=== PATIENT | female | born 1935 | race Caucasian/White ===

== ENCOUNTER 2016-09-08 23:02 | Emergency (ER) | payer MEDICARE, OTHER ==
[2016-09-08 23:52] VITALS: BP 119/54
--- NOTE | 2016-09-09 00:24 | EDM.PDOC ---
ED HPI GENERAL MEDICAL PROBLEM - General Chief Complaint: Laceration Stated Complaint: CUT RIGHT LEG Time Seen by Provider: 09/09/16 00:14 Source of Information: Reports: Patient History Limitations: Reports: No Limitations - History of Present Illness INITIAL COMMENTS - FREE TEXT/NARRATIVE: This patient is taking an anticoagulant. Tonight she bumped her right lower leg against some furniture. She got a skin tear which continues to bleed and she is worried it might need stitches. Right Leg Pain Score (Numeric/FACES): 3 - Related Data Allergies Allergy/AdvReac Type Severity Reaction Status Date / Time amoxicillin Allergy Cannot Verified 09/08/16 23:40 Remember bacitracin Allergy Cannot Verified 09/08/16 23:40 Remember enoxaparin Allergy Cannot Verified 09/08/16 23:40 Remember latex Allergy Cannot Verified 09/08/16 23:40 Remember ramipril Allergy Cannot Verified 09/08/16 23:40 Remember Home Meds: Home Meds Albuterol [Ventolin HFA] 2 puff IH Q4H PRN 09/09/16 [History] Allopurinol [Zyloprim] 100 mg PO DAILY 09/09/16 [History] Aspirin [Ecotrin] 81 mg PO DAILY 09/09/16 [History] Cyanocobalamin (Vitamin B12) [Vitamin B12] 100 mcg PO BID 09/09/16 [History] Diazepam [Diazepam] 10 mg PO BEDTIME PRN 09/09/16 [History] Diltiazem HCl [Diltiazem 24Hr Cd] 180 mg PO DAILY 09/09/16 [History] Estrogens, Conjugated [Premarin Vaginal Crm] 0.5 gm VAG DAILY 09/09/16 [History] Furosemide [Lasix] 40 mg PO BID 09/09/16 [History] L.acidoph,Paracasei, B.lactis [Probiotic] 1 cap PO DAILY 09/09/16 [History] Meclizine [Antivert] 25 mg PO TID PRN 09/09/16 [History] Metoprolol Succinate [Toprol Xl] 12.5 mg PO BID 09/09/16 [History] Pravastatin [Pravachol] 10 mg PO BEDTIME 09/09/16 [History] Spironolactone [Aldactone] 25 mg PO BID 09/09/16 [History] Warfarin [Coumadin] 1.5 tab PO DAILY 09/09/16 [History] Warfarin [Coumadin] 5 mg PO DAILY 09/09/16 [History] guaiFENesin/Dextromethorphan [Robitussin Cough-Chest Dm Liq] 1 dose PO ASDIRECTED 09/09/16 [History] Past Medical History HEENT History: Reports: Cataract, Impaired Vision Cardiovascular History: Reports: Arrhythmia, High Cholesterol, Hypertension, Pacemaker Respiratory History: Reports: Sleep Apnea 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: Musculoskeletal History: Reports: Arthritis Hematologic History: Reports: Anemia, Anticoagulation Therapy Oncologic (Cancer) History: Reports: Breast Dermatologic History: Reports: Other (See Below) Other Dermatologic History: skin cancer - Past Surgical History HEENT Surgical History: Reports: Cataract Surgery Cardiovascular Surgical History: Reports: Valve Replacement Female Surgical History: Reports: Breast Reconstruction, Hysterectomy Musculoskeletal Surgical History: Reports: Knee Replacement Oncologic Surgical History: Reports: Mastectomy Other Oncologic Surgeries/Procedures: left mastectomy Social & Family History - Tobacco Use Smoking Status *Q: Never Smoker - Caffeine Use Caffeine Use: Reports: None - Alcohol Use Days Per Week of Alcohol Use: 7 Number of Drinks Per Day: 2 Total Drinks Per Week: 14 - Recreational Drug Use Recreational Drug Use: No ED ROS GENERAL - Review of Systems Review Of Systems: ROS reveals no pertinent complaints other than HPI. ED EXAM, SKIN/RASH Exam: See Below Exam Limited By: No Limitations General Appearance: Alert, WD/WN Extremities: Other (there is a small skin tear approximately 2.5 cm long to the lateral side of the lower third of the right lower leg. He continues to ooze blood.) Course - Vital Signs Last Recorded V/S: Last Vital Signs Temp 36.8 C 09/08/16 23:55 Pulse 92 09/08/16 23:55 Resp 18 09/08/16 23:55 BP 119/54 L 09/08/16 23:55 Pulse Ox 94 L 09/08/16 23:55 - Re-Assessments/Exams Free Text/Narrative Re-Assessment/Exam: 09/09/16 00:23 The wound was cleaned and a nonstick pressure dressing was applied. Departure - Departure Time of Disposition: 00:23 Disposition: Home, Self-Care 01 Condition: Fair Clinical Impression: Skin tear - Discharge Information Forms: ED Department Discharge Additional Instructions: Leave the dressing on until Saturday. Then begin gently washing with soap and water daily and cover with a dressing. If it bleeds more than you should apply direct pressure.
== END 2016-09-09 00:36 | disposition home or self-care (01) ==
LOC: JP.ED 23:02
DX: S81.811A Laceration without foreign body, right lower leg, initial encounter (principal); I10 Essential (primary) hypertension; E78.00 Pure hypercholesterolemia, unspecified; H54.7 Unspecified visual loss; Z88.8 Allergy status to other drugs, medicaments and biological substances; Z91.040 Latex allergy status; Z79.82 Long term (current) use of aspirin; Z88.1 Allergy status to other antibiotic agents; Z79.899 Other long term (current) drug therapy; Z79.01 Long term (current) use of anticoagulants; Z95.0 Presence of cardiac pacemaker; Z98.49 Cataract extraction status, unspecified eye; Z90.10 Acquired absence of unspecified breast and nipple; Z96.659 Presence of unspecified artificial knee joint; Z90.710 Acquired absence of both cervix and uterus; W22.03XA Walked into furniture, initial encounter
CPT/HCPCS: 99282; 99283

== ENCOUNTER 2016-11-14 16:35 | Inpatient (IN) | payer MEDICARE, OTHER ==
[2016-11-14] MEDS ORDERED: Albuterol 0.083% 2.5 MG/3 ML Neb Soln NEB ONE (17:22)
--- NOTE | 2016-11-14 17:26 | EDM.PDOC ---
ED HPI GENERAL MEDICAL PROBLEM - General Chief Complaint: Respiratory Problem Stated Complaint: SICK FOR A FEW DAYS Time Seen by Provider: 11/14/16 17:23 Source of Information: Reports: Patient, Family, Old Records History Limitations: Reports: No Limitations - History of Present Illness INITIAL COMMENTS - FREE TEXT/NARRATIVE: pt arrived with marked sob. She started coughing on Sat and since that time has gotten progressively worse. She has been very sob but last nite she usd her cpap machine which was helpful to her. Onset: Gradual Duration: Day(s):, Getting Worse Location: Reports: Chest, Other (pt is feeling very congested. ) Associated Symptoms: Reports: Shortness of Breath headache and bodyaches Pain Score (Numeric/FACES): 5 Right Hip Pain Score (Numeric/FACES): 0 - Related Data Allergies Allergy/AdvReac Type Severity Reaction Status Date / Time amoxicillin Allergy Cannot Verified 11/14/16 17:13 Remember bacitracin Allergy Cannot Verified 11/14/16 17:13 Remember enoxaparin Allergy Cannot Verified 11/14/16 17:13 Remember latex Allergy Cannot Verified 11/14/16 17:13 Remember ramipril Allergy Cannot Verified 11/14/16 17:13 Remember Home Meds: Home Meds Albuterol [Ventolin HFA] 2 puff IH Q4H PRN 09/09/16 [History] Allopurinol [Zyloprim] 100 mg PO DAILY 09/09/16 [History] Aspirin [Ecotrin] 81 mg PO DAILY 09/09/16 [History] Diltiazem HCl [Diltiazem 24Hr Cd] 180 mg PO DAILY 09/09/16 [History] Estrogens, Conjugated [Premarin Vaginal Crm] 0.5 gm VAG DAILY 09/09/16 [History] Furosemide [Lasix] 40 mg PO BID 09/09/16 [History] L.acidoph,Paracasei, B.lactis [Probiotic] 1 cap PO DAILY 09/09/16 [History] Meclizine [Antivert] 25 mg PO TID PRN 09/09/16 [History] Metoprolol Succinate [Toprol Xl] 12.5 mg PO BID 09/09/16 [History] Pravastatin [Pravachol] 10 mg PO BEDTIME 09/09/16 [History] Spironolactone [Aldactone] 25 mg PO BID 09/09/16 [History] Warfarin [Coumadin] 1.5 tab PO DAILY 09/09/16 [History] Warfarin [Coumadin] 2.5 mg PO DAILY 09/09/16 [History] Acetaminophen [Tylenol] 650 mg PO BEDTIME 11/14/16 [History] Calcium Carbonate [Calcium] 500 mg PO BEDTIME 11/14/16 [History] Cholecalciferol (Vitamin D3) [Vitamin D3] 1,000 units PO DAILY 11/14/16 [History ] Diazepam [Valium] 10 mg PO BEDTIME 11/14/16 [History] Ferrous Sulfate 325 mg PO WITHBREAKFAST 11/14/16 [History] Glucosimene-Chondroitin 1 cap PO BID 11/14/16 [History] Past Medical History HEENT History: Reports: Cataract, Impaired Vision Cardiovascular History: Reports: Arrhythmia, High Cholesterol, Hypertension, Pacemaker Respiratory History: Reports: Sleep Apnea Genitourinary History: Reports: Other (See Below) Other Genitourinary History: 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 [employer] History: Reports: Musculoskeletal History: Reports: Arthritis, Osteoarthritis Hematologic History: Reports: Anemia, Anticoagulation Therapy Oncologic (Cancer) History: Reports: Breast, Uterine Other Oncologic History: skin cancer Dermatologic History: Reports: Other (See Below) Other Dermatologic History: skin cancer - Past Surgical History HEENT Surgical History: Reports: Cataract Surgery Cardiovascular Surgical History: Reports: Valve Replacement Female Surgical History: Reports: Breast Reconstruction, Hysterectomy Musculoskeletal Surgical History: Reports: Knee Replacement Other Musculoskeletal Surgeries/Procedures:: 2010 Oncologic Surgical History: Reports: Mastectomy Other Oncologic Surgeries/Procedures: left mastectomy Social & Family History - Tobacco Use Smoking Status *Q: Never Smoker - Caffeine Use Caffeine Use: Reports: None - Alcohol Use Days Per Week of Alcohol Use: 7 Number of Drinks Per Day: 2 Total Drinks Per Week: 14 - Recreational Drug Use Recreational Drug Use: No ED ROS GENERAL - Review of Systems Review Of Systems: See Below Constitutional: Reports: Fever, Chills, Malaise, Decreased Appetite HEENT: Reports: No Symptoms Respiratory: Reports: Wheezing, Cough Cardiovascular: Reports: No Symptoms Endocrine: Reports: No Symptoms GI/Abdominal: Reports: No Symptoms : Reports: No Symptoms Musculoskeletal: Reports: No Symptoms Skin: Reports: No Symptoms ED EXAM, GENERAL - Physical Exam Exam: See Below Free Text/Narrative:: pt is clearly very sob. She has been struggling for the past 2-3 days. She has had increased swelling in her ankles--mild. Exam Limited By: Respiratory Distress General Appearance: Alert, Anxious, Moderate Distress, Other (pupils are equal and reactive. ) Ears: Normal TMs Nose: Normal Inspection Throat/Mouth: Normal Inspection Head: Atraumatic Neck: Normal Inspection Respiratory/Chest: Decreased Breath Sounds, Crackles, Wheezing Cardiovascular: Irregularly Irregular GI/Abdominal: Soft, Other ( abdoman seemes slightly tight but not tender. ) (Female) Exam: Deferred Rectal (Female) Exam: Deferred Back Exam: Normal Inspection Extremities: Other (pt has severe stasis dermatitis, pt has plus1 pitting edema. She has an open lesion on her rt leg. ) Neurological: Alert, Oriented, Normal Cognition, Other (Pt is labored with her breathing) Psychiatric: Normal Affect Course - Vital Signs Last Recorded V/S: Last Vital Signs Temp 36.3 C 11/19/16 03:19 Pulse 80 11/19/16 03:19 Resp 16 11/19/16 03:19 BP 122/64 11/19/16 03:19 Pulse Ox 91 L 11/19/16 03:19 - Orders/Labs/Meds Orders: Medication Orders Acetaminophen (Tylenol) 650 mg PO Q4H PRN PRN Reason: Pain (Mild 1-3)/fever Last Admin: 11/18/16 22:25 Dose: 650 mg Admin: 11/17/16 20:48 Dose: 650 mg Admin: 11/16/16 20:39 Dose: 650 mg Admin: 11/16/16 16:05 Dose: 650 mg Admin: 11/16/16 09:24 Dose: 650 mg Admin: 11/15/16 18:24 Dose: 650 mg Admin: 11/14/16 21:31 Dose: 650 mg Albuterol (Proventil Neb Soln) 2.5 mg NEB Q4H PRN PRN Reason: Shortness Of Breath/wheezing Albuterol/Ipratropium (Duoneb 3.0-0.5 Mg/3 Ml) 3 ml NEB QIDRT DIANNA Last Admin: 11/18/16 20:05 Dose: 3 ml Admin: 11/18/16 14:47 Dose: 3 ml Admin: 11/18/16 14:46 Dose: Not Given Admin: 11/18/16 08:27 Dose: 3 ml Admin: 11/17/16 20:47 Dose: 3 ml Admin: 11/17/16 14:54 Dose: 3 ml Admin: 11/17/16 11:04 Dose: Not Given Admin: 11/17/16 07:22 Dose: 3 ml Admin: 11/16/16 20:39 Dose: 3 ml Admin: 11/16/16 14:50 Dose: 3 ml Admin: 11/16/16 11:00 Dose: 3 ml Admin: 11/16/16 07:28 Dose: 3 ml Admin: 11/15/16 20:49 Dose: 3 ml Admin: 11/15/16 14:38 Dose: 3 ml Admin: 11/15/16 10:50 Dose: 3 ml Allopurinol (Zyloprim) 100 mg PO DAILY [facility] Last Admin: 11/18/16 08:27 Dose: 100 mg Admin: 11/17/16 09:31 Dose: 100 mg Admin: 11/16/16 09:04 Dose: 100 mg Admin: 11/15/16 10:31 Dose: 100 mg Benzonatate (Tessalon Perles) 100 mg PO TID PRN PRN Reason: Cough Last Admin: 11/18/16 03:24 Dose: 100 mg Admin: 11/17/16 20:48 Dose: 100 mg Admin: 11/17/16 06:30 Dose: 100 mg Admin: 11/16/16 16:05 Dose: 100 mg Admin: 11/16/16 09:12 Dose: 100 mg Diazepam (Valium.) 10 mg PO BEDTIME DIANNA Last Admin: 11/18/16 22:25 Dose: 10 mg Admin: 11/17/16 20:48 Dose: 10 mg Admin: 11/16/16 20:39 Dose: 10 mg Admin: 11/15/16 20:57 Dose: 10 mg Admin: 11/14/16 21:34 Dose: 10 mg Diltiazem HCl (Cardizem Cd) 180 mg PO DAILY DIANNA Last Admin: 11/18/16 08:26 Dose: 180 mg Admin: 11/17/16 09:30 Dose: 180 mg Admin: 11/16/16 09:04 Dose: 180 mg Admin: 11/15/16 10:30 Dose: 180 mg Docusate Sodium (Colace) 100 mg PO BID PRN PRN Reason: Constipation Furosemide (Lasix) 40 mg PO BIDDIURETIC [facility] Last Admin: 11/18/16 13:31 Dose: 40 mg Admin: 11/18/16 08:27 Dose: 40 mg Admin: 11/17/16 13:47 Dose: 40 mg Admin: 11/17/16 07:26 Dose: 40 mg Admin: 11/16/16 14:58 Dose: 40 mg Admin: 11/16/16 09:02 Dose: 40 mg Admin: 11/15/16 13:52 Dose: 40 mg Admin: 11/15/16 10:29 Dose: 40 mg Guaifenesin/Codeine Phosphate (Robitussin Ac) 10 ml PO Q4H PRN PRN Reason: Cough Last Admin: 11/15/16 05:14 Dose: 10 ml Admin: 11/14/16 21:31 Dose: 10 ml Guaifenesin/Dextromethorphan (Robitussin Dm) 10 ml PO Q4H PRN PRN Reason: Cough Last Admin: 11/18/16 11:24 Dose: 10 ml Levofloxacin/Dextrose 750 mg/ (Premix) 150 mls @ 100 mls/hr IV Q48H [facility] Last Admin: 11/18/16 20:06 Dose: 100 mls/hr Infusion: 11/16/16 22:09 Dose: 100 mls/hr Admin: 11/16/16 20:39 Dose: 100 mls/hr Infusion: 11/14/16 23:04 Dose: 100 mls/hr Admin: 11/14/16 21:34 Dose: 100 mls/hr Lactobacillus Rhamnosus (Culturelle) 1 cap PO BID [facility] Last Admin: 11/18/16 20:05 Dose: 1 cap Admin: 11/18/16 08:27 Dose: 1 cap Admin: 11/17/16 20:50 Dose: 1 cap Admin: 11/17/16 13:48 Dose: 1 cap Lorazepam (Ativan) 1 mg IV Q6H PRN PRN Reason: Nausea/Vomiting Metoprolol Succinate (Toprol Xl) 12.5 mg PO BID [facility] Last Admin: 11/18/16 20:06 Dose: 12.5 mg Admin: 11/18/16 08:27 Dose: 12.5 mg Admin: 11/17/16 21:00 Dose: 12.5 mg Admin: 11/17/16 09:29 Dose: 12.5 mg Admin: 11/16/16 20:41 Dose: 12.5 mg Admin: 11/16/16 09:04 Dose: 12.5 mg Admin: 11/15/16 20:53 Dose: 12.5 mg Admin: 11/15/16 10:30 Dose: 12.5 mg Admin: 11/14/16 21:30 Dose: 12.5 mg Morphine Sulfate (Morphine) 2 mg IVPUSH Q2H PRN PRN Reason: Pain (severe 7-10) Nyquil Gel Caps (Own Med) 2 each PO Q4H PRN PRN Reason: COUGH / SLEEP Last Admin: 11/19/16 01:29 Dose: 2 each Ondansetron HCl (Zofran Odt) 4 mg PO Q6H PRN PRN Reason: Nausea able to take PO Ondansetron HCl (Zofran) 4 mg IV Q4H PRN PRN Reason: Nausea/Vomiting Pantoprazole Sodium (Protonix) 40 mg PO ACBREAKFAST [facility] Last Admin: 11/18/16 08:27 Dose: 40 mg Admin: 11/17/16 07:25 Dose: 40 mg Admin: 11/16/16 07:27 Dose: 40 mg Admin: 11/15/16 10:29 Dose: 40 mg Dayquil (Apap/Dextromethorphan/Phenyl)Ptom 2 each PO QID PRN PRN Reason: COUGH Last Admin: 11/18/16 15:45 Dose: 2 each Pravastatin Sodium (Pravachol) 10 mg PO BEDTIME DIANNA Last Admin: 11/18/16 20:06 Dose: 10 mg Admin: 11/17/16 20:49 Dose: 10 mg Admin: 11/16/16 20:40 Dose: 10 mg Admin: 11/15/16 20:54 Dose: 10 mg Admin: 11/14/16 21:34 Dose: 10 mg Senna/Docusate Sodium (Senna Plus) 1 tab PO BID PRN PRN Reason: Constipation Last Admin: 11/18/16 20:07 Dose: 1 tab Spironolactone (Aldactone) 25 mg PO BID [facility] Last Admin: 11/18/16 20:05 Dose: 25 mg Admin: 11/18/16 08:27 Dose: 25 mg Admin: 11/17/16 20:50 Dose: 25 mg Admin: 11/17/16 09:30 Dose: 25 mg Admin: 11/16/16 20:40 Dose: 25 mg Admin: 11/16/16 09:03 Dose: 25 mg Admin: 11/15/16 20:53 Dose: 25 mg Admin: 11/15/16 10:30 Dose: 25 mg Admin: 11/14/16 21:31 Dose: 25 mg Temazepam (Restoril) 15 mg PO BEDTIME PRN PRN Reason: Sleep Last Admin: 11/15/16 01:08 Dose: 15 mg Labs: Laboratory Tests 11/14/16 11/14/16 11/14/16 Range/Units 16:59 17:02 17:02 WBC 15.2 H (4.5-11.0) K/uL RBC 3.62 (3.30-5.50) M/uL Hgb 11.8 L (12.0-15.0) g/dL Hct 36.3 (36.0-48.0) % MCV 100 H (80-98) fL MCH 33 H (27-31) pg MCHC 33 (32-36) % Plt Count 189 (150-400) K/uL Neut % (Auto) 82 H (36-66) % Lymph % (Auto) 5 L (24-44) % [place] % (Auto) 13 H (2-6) % Eos % (Auto) 0 L (2-4) % Baso % (Auto) 0 (0-1) % PT (9.5-12.0) sec INR (0.80-1.20) Puncture Site ABG pH (7.350-7.450) ABG pCO2 (35.0-42.0) mmHg ABG pO2 (75.0-100.0) mmHg ABG HCO3 (22.0-26.0) mmol/L ABG Total CO2 (21.0-25.0) mmol/L ABG O2 Saturation (95.0-98.0) % ABG O2 Content (15.0-23.0) %vol ABG Base Excess mm/L ABG Hemoglobin (12.0-16.0) g/dL ABG Oxyhemoglobin % ABG Carboxyhemoglobin (0.0-1.6) % ABG Methemoglobin % Igor Test O2 Delivery Device Sodium (140-148) mmol/L Potassium (3.6-5.2) mmol/L Chloride (100-108) mmol/L Carbon Dioxide (21-32) mmol/L Anion Gap (5.0-14.0) mmol/L BUN (7-18) mg/dL Creatinine (0.6-1.0) mg/dL Est Cr Clr Drug Dosing mL/min Estimated GFR (MDRD) (>60) Glucose (74-106) mg/dL Lactic Acid (0.4-2.0) mmol/L Calcium (8.5-10.1) mg/dL Total Bilirubin (0.2-1.0) mg/dL AST (15-37) U/L ALT (12-78) U/L Alkaline Phosphatase (46-116) U/L Troponin I < 0.017 (0.000-0.056) ng/mL C-Reactive Protein (0.0-0.3) mg/dL NT-Pro-B Natriuret Pep (5-450) pg/mL Total Protein (6.4-8.2) g/dL Albumin (3.4-5.0) g/dL Globulin (2.3-3.5) g/dL Albumin/Globulin Ratio (1.2-2.2) Vitamin B12 (193-986) pg/ml Folate (8.6-58.9) ng/ml Urine Color Yellow Urine Appearance Clear Urine pH 5.0 (4.5-8.0) Ur Specific [place] 1.015 (1.008-1.030) Urine Protein Negative (NEGATIVE) mg/dL Urine Glucose (UA) Normal (NEGATIVE) mg/dL Urine Ketones Negative (NEGATIVE) mg/dL Urine Occult Blood Negative (NEGATIVE) Urine Nitrite Negative (NEGATIVE) Urine Bilirubin Negative (NEGATIVE) Urine Urobilinogen Normal (NORMAL) mg/dL Ur Leukocyte Esterase Negative (NEGATIVE) Urine RBC 0-5 (0-5) Urine WBC Not seen (0-5) Ur Epithelial Cells Many Amorphous Sediment Not seen Urine Bacteria Not seen Urine Mucus Not seen 11/14/16 11/14/16 11/14/16 Range/Units 17:02 17:02 17:02 WBC (4.5-11.0) K/uL RBC (3.30-5.50) M/uL Hgb (12.0-15.0) g/dL Hct (36.0-48.0) % MCV (80-98) fL MCH (27-31) pg MCHC (32-36) % Plt Count (150-400) K/uL Neut % (Auto) (36-66) % Lymph % (Auto) (24-44) % [place] % (Auto) (2-6) % Eos % (Auto) (2-4) % Baso % (Auto) (0-1) % PT (9.5-12.0) sec INR (0.80-1.20) Puncture Site ABG pH (7.350-7.450) ABG pCO2 (35.0-42.0) mmHg ABG pO2 (75.0-100.0) mmHg ABG HCO3 (22.0-26.0) mmol/L ABG Total CO2 (21.0-25.0) mmol/L ABG O2 Saturation (95.0-98.0) % ABG O2 Content (15.0-23.0) %vol ABG Base Excess mm/L ABG Hemoglobin (12.0-16.0) g/dL ABG Oxyhemoglobin % ABG Carboxyhemoglobin (0.0-1.6) % ABG Methemoglobin % Igor Test O2 Delivery Device Sodium 133 L (140-148) mmol/L Potassium 4.3 (3.6-5.2) mmol/L Chloride 99 L (100-108) mmol/L Carbon Dioxide 25 (21-32) mmol/L Anion Gap 13.3 (5.0-14.0) mmol/L BUN 42 H (7-18) mg/dL Creatinine 1.5 H (0.6-1.0) mg/dL Est Cr Clr Drug Dosing 28.12 mL/min Estimated GFR (MDRD) 33 L (>60) Glucose 115 H (74-106) mg/dL Lactic Acid (0.4-2.0) mmol/L Calcium 9.1 (8.5-10.1) mg/dL Total Bilirubin 0.9 (0.2-1.0) mg/dL AST 20 (15-37) U/L ALT 21 (12-78) U/L Alkaline Phosphatase 79 (46-116) U/L Troponin I (0.000-0.056) ng/mL C-Reactive Protein 28.45 H (0.0-0.3) mg/dL NT-Pro-B Natriuret Pep 2641 H (5-450) pg/mL Total Protein 8.1 (6.4-8.2) g/dL Albumin 3.3 L (3.4-5.0) g/dL Globulin 4.8 H (2.3-3.5) g/dL Albumin/Globulin Ratio 0.7 L (1.2-2.2) Vitamin B12 (193-986) pg/ml Folate 26.7 (8.6-58.9) ng/ml Urine Color Urine Appearance Urine pH (4.5-8.0) Ur Specific [place] (1.008-1.030) Urine Protein (NEGATIVE) mg/dL Urine Glucose (UA) (NEGATIVE) mg/dL Urine Ketones (NEGATIVE) mg/dL Urine Occult Blood (NEGATIVE) Urine Nitrite (NEGATIVE) Urine Bilirubin (NEGATIVE) Urine Urobilinogen (NORMAL) mg/dL Ur Leukocyte Esterase (NEGATIVE) Urine RBC (0-5) Urine WBC (0-5) Ur Epithelial Cells Amorphous Sediment Urine Bacteria Urine Mucus 11/14/16 11/14/16 11/14/16 Range/Units 17:02 17:02 17:05 WBC (4.5-11.0) K/uL RBC (3.30-5.50) M/uL Hgb (12.0-15.0) g/dL Hct (36.0-48.0) % MCV (80-98) fL MCH (27-31) pg MCHC (32-36) % Plt Count (150-400) K/uL Neut % (Auto) (36-66) % Lymph % (Auto) (24-44) % [place] % (Auto) (2-6) % Eos % (Auto) (2-4) % Baso % (Auto) (0-1) % PT (9.5-12.0) sec INR (0.80-1.20) Puncture Site Rt radial ABG pH 7.422 (7.350-7.450) ABG pCO2 35.7 (35.0-42.0) mmHg ABG pO2 52.7 L (75.0-100.0) mmHg ABG HCO3 22.8 (22.0-26.0) mmol/L ABG Total CO2 20.8 L (21.0-25.0) mmol/L ABG O2 Saturation 87.3 L (95.0-98.0) % ABG O2 Content 13.6 L (15.0-23.0) %vol ABG Base Excess -0.7 mm/L ABG Hemoglobin 11.4 L (12.0-16.0) g/dL ABG Oxyhemoglobin 85.0 % ABG Carboxyhemoglobin 1.9 H (0.0-1.6) % ABG Methemoglobin 0.7 % Igor Test Passed O2 Delivery Device Room air Sodium (140-148) mmol/L Potassium (3.6-5.2) mmol/L Chloride (100-108) mmol/L Carbon Dioxide (21-32) mmol/L Anion Gap (5.0-14.0) mmol/L BUN (7-18) mg/dL Creatinine (0.6-1.0) mg/dL Est Cr Clr Drug Dosing mL/min Estimated GFR (MDRD) (>60) Glucose (74-106) mg/dL Lactic Acid 1.6 (0.4-2.0) mmol/L Calcium (8.5-10.1) mg/dL Total Bilirubin (0.2-1.0) mg/dL AST (15-37) U/L ALT (12-78) U/L Alkaline Phosphatase (46-116) U/L Troponin I (0.000-0.056) ng/mL C-Reactive Protein (0.0-0.3) mg/dL NT-Pro-B Natriuret Pep (5-450) pg/mL Total Protein (6.4-8.2) g/dL Albumin (3.4-5.0) g/dL Globulin (2.3-3.5) g/dL Albumin/Globulin Ratio (1.2-2.2) Vitamin B12 2092 H (193-986) pg/ml Folate (8.6-58.9) ng/ml Urine Color Urine Appearance Urine pH (4.5-8.0) Ur Specific [place] (1.008-1.030) Urine Protein (NEGATIVE) mg/dL Urine Glucose (UA) (NEGATIVE) mg/dL Urine Ketones (NEGATIVE) mg/dL Urine Occult Blood (NEGATIVE) Urine Nitrite (NEGATIVE) Urine Bilirubin (NEGATIVE) Urine Urobilinogen (NORMAL) mg/dL Ur Leukocyte Esterase (NEGATIVE) Urine RBC (0-5) Urine WBC (0-5) Ur Epithelial Cells Amorphous Sediment Urine Bacteria Urine Mucus 11/14/16 Range/Units 17:06 WBC (4.5-11.0) K/uL RBC (3.30-5.50) M/uL Hgb (12.0-15.0) g/dL Hct (36.0-48.0) % MCV (80-98) fL MCH (27-31) pg MCHC (32-36) % Plt Count (150-400) K/uL Neut % (Auto) (36-66) % Lymph % (Auto) (24-44) % [place] % (Auto) (2-6) % Eos % (Auto) (2-4) % Baso % (Auto) (0-1) % PT 38.9 H (9.5-12.0) sec INR 3.45 H (0.80-1.20) Puncture Site ABG pH (7.350-7.450) ABG pCO2 (35.0-42.0) mmHg ABG pO2 (75.0-100.0) mmHg ABG HCO3 (22.0-26.0) mmol/L ABG Total CO2 (21.0-25.0) mmol/L ABG O2 Saturation (95.0-98.0) % ABG O2 Content (15.0-23.0) %vol ABG Base Excess mm/L ABG Hemoglobin (12.0-16.0) g/dL ABG Oxyhemoglobin % ABG Carboxyhemoglobin (0.0-1.6) % ABG Methemoglobin % Igor Test O2 Delivery Device Sodium (140-148) mmol/L Potassium (3.6-5.2) mmol/L Chloride (100-108) mmol/L Carbon Dioxide (21-32) mmol/L Anion Gap (5.0-14.0) mmol/L BUN (7-18) mg/dL Creatinine (0.6-1.0) mg/dL Est Cr Clr Drug Dosing mL/min Estimated GFR (MDRD) (>60) Glucose (74-106) mg/dL Lactic Acid (0.4-2.0) mmol/L Calcium (8.5-10.1) mg/dL Total Bilirubin (0.2-1.0) mg/dL AST (15-37) U/L ALT (12-78) U/L Alkaline Phosphatase (46-116) U/L Troponin I (0.000-0.056) ng/mL C-Reactive Protein (0.0-0.3) mg/dL NT-Pro-B Natriuret Pep (5-450) pg/mL Total Protein (6.4-8.2) g/dL Albumin (3.4-5.0) g/dL Globulin (2.3-3.5) g/dL Albumin/Globulin Ratio (1.2-2.2) Vitamin B12 (193-986) pg/ml Folate (8.6-58.9) ng/ml Urine Color Urine Appearance Urine pH (4.5-8.0) Ur Specific [place] (1.008-1.030) Urine Protein (NEGATIVE) mg/dL Urine Glucose (UA) (NEGATIVE) mg/dL Urine Ketones (NEGATIVE) mg/dL Urine Occult Blood (NEGATIVE) Urine Nitrite (NEGATIVE) Urine Bilirubin (NEGATIVE) Urine Urobilinogen (NORMAL) mg/dL Ur Leukocyte Esterase (NEGATIVE) Urine RBC (0-5) Urine WBC (0-5) Ur Epithelial Cells Amorphous Sediment Urine Bacteria Urine Mucus Meds: Medications Generic Name Dose Route Start Last Admin Trade Name Freq PRN Reason Stop Dose Admin Acetaminophen 650 mg 11/14/16 20:51 11/18/16 22:25 Tylenol PO 650 mg Q4H PRN Administration Pain (Mild 1-3)/fever Albuterol 2.5 mg 11/14/16 20:51 Proventil Neb Soln NEB Q4H PRN Shortness Of Breath/wheezing Albuterol/Ipratropium 3 ml 11/15/16 11:00 11/18/16 20:05 Duoneb 3.0-0.5 Mg/3 Ml NEB 3 ml QIDRT DIANNA Administration Allopurinol 100 mg 11/15/16 09:00 11/18/16 08:27 Zyloprim PO 100 mg DAILY DIANNA Administration Benzonatate 100 mg 11/14/16 20:51 11/18/16 03:24 Tessalon Perles PO 100 mg TID PRN Administration Cough Diazepam 10 mg 11/14/16 21:00 11/18/16 22:25 Valium. PO 10 mg BEDTIME DIANNA Administration Diltiazem HCl 180 mg 11/15/16 09:00 11/18/16 08:26 Cardizem Cd PO 180 mg DAILY DIANNA Administration Docusate Sodium 100 mg 11/14/16 20:51 Colace PO BID PRN Constipation Furosemide 40 mg 11/15/16 08:00 11/18/16 13:31 Lasix PO 40 mg BIDDIURETIC DIANNA Administration Guaifenesin/Codeine Phosphate 10 ml 11/14/16 20:51 11/15/16 05:14 Robitussin Ac PO 10 ml Q4H PRN Administration Cough Guaifenesin/Dextromethorphan 10 ml 11/14/16 20:51 11/18/16 11:24 Robitussin Dm PO 10 ml Q4H PRN Administration Cough Levofloxacin/Dextrose 750 mg/ 150 mls @ 100 mls/hr 11/14/16 21:00 11/18/16 20 :06 Premix IV 100 mls/hr Q48H DIANNA Administration Lactobacillus Rhamnosus 1 cap 11/17/16 13:00 11/18/16 20:05 Culturelle PO 1 cap BID DIANNA Administration Lorazepam 1 mg 11/14/16 20:51 Ativan IV Q6H PRN Nausea/Vomiting Metoprolol Succinate 12.5 mg 11/14/16 21:00 11/18/16 20:06 Toprol Xl PO 12.5 mg BID DIANNA Administration Morphine Sulfate 2 mg 11/14/16 20:51 Morphine IVPUSH Q2H PRN Pain (severe 7-10) Nyquil Gel Caps 2 each 11/18/16 16:35 11/19/16 01:29 Own Med PO 2 each Q4H PRN Administration COUGH / SLEEP Ondansetron HCl 4 mg 11/14/16 20:51 Zofran Odt PO Q6H PRN Nausea able to take PO Ondansetron HCl 4 mg 11/14/16 20:51 Zofran IV Q4H PRN Nausea/Vomiting Pantoprazole Sodium 40 mg 11/15/16 07:30 11/18/16 08:27 Protonix PO 40 mg ACBREAKFAST DIANNA Administration Dayquil (Apap/ 2 each 11/18/16 16:35 11/18/16 15:45 Dextromethorphan/ PO 2 each Phenyl)Ptom QID PRN Administration COUGH Pravastatin Sodium 10 mg 11/14/16 21:00 11/18/16 20:06 Pravachol PO 10 mg BEDTIME DIANNA Administration Senna/Docusate Sodium 1 tab 11/17/16 14:00 11/18/16 20:07 Senna Plus PO 1 tab BID PRN Administration Constipation Spironolactone 25 mg 11/14/16 21:00 11/18/16 20:05 Aldactone PO 25 mg BID DIANNA Administration Temazepam 15 mg 11/15/16 00:45 11/15/16 01:08 Restoril PO 15 mg BEDTIME PRN Administration Sleep Discontinued Medications Generic Name Dose Route Start Last Admin Trade Name Freq PRN Reason Stop Dose Admin Albuterol 2.5 mg 11/14/16 17:22 11/14/16 17:30 Proventil Neb Soln NEB 11/14/16 17:23 2.5 mg ONETIME ONE Administration Albuterol/Ipratropium 3 ml 11/14/16 22:00 11/15/16 05:14 Duoneb 3.0-0.5 Mg/3 Ml NEB 3 ml QID DIANNA Administration Furosemide 60 mg 11/14/16 17:49 11/14/16 18:20 Lasix IVPUSH 11/14/16 17:50 60 mg ONETIME ONE Administration Furosemide Confirm 11/14/16 18:22 11/14/16 20:29 Lasix Administered 11/14/16 18:23 Not Given Dose 40 mg .ROUTE .STK-MED ONE Furosemide 40 mg 11/14/16 21:00 11/15/16 05:27 Lasix PO Not Given BID DIANNA Furosemide 40 mg 11/15/16 09:00 Lasix PO BID DIANNA Sodium Chloride 1,000 mls @ 100 mls/hr 11/14/16 18:00 11/16/16 02:10 Normal Saline IV 100 mls/hr ASDIRECTED DIANNA Administration Ceftriaxone Sodium 1 gm/ 50 mls @ 100 mls/hr 11/14/16 18:21 11/14/16 18:46 Sodium Chloride IV 11/14/16 18:50 100 mls/hr ONETIME ONE Administration Ceftriaxone Sodium 1 gm/ 50 mls @ 100 mls/hr 11/15/16 18:00 11/15/16 18:20 Sodium Chloride IV 100 mls/hr Q24H DIANNA Administration Nyquil Gel Caps 2 each 11/15/16 21:33 11/17/16 23:33 Own Med PO 2 each Q4H PRN Administration COUGH / SLEEP Nyquil Gel Caps 2 each 11/18/16 15:49 Own Med PO QID PRN COUGH/SLEEP Dayquil (Apap/ 2 each 11/16/16 12:00 11/18/16 06:06 Dextromethorphan/ PO 2 each Phenyl)Ptom DAILY PRN Administration COUGH Patient Own Medication 2 each 11/18/16 15:43 Ptom PO QID PRN COUGH Warfarin Sodium 1.5 mg 11/15/16 13:00 11/16/16 12:16 Coumadin PO 1.5 mg [id number]@1300 [facility] Administration Warfarin Sodium 2.5 mg 11/17/16 13:00 Coumadin PO WeSa@1300 [facility] - Re-Assessments/Exams Free Text/Narrative Re-Assessment/Exam: 11/14/16 17:52 wbc is elevated, chest xray shows fluid overload and probable infiltrate, bnp is markedly elevated. O2 sats are down in the 87 range, her co2 is not elevated. 11/14/16 17:53 ekg is show atrial fib which is chronic 11/14/16 18:19 pt has a markedly elevated crp at 28. Her bnp is elevated. Her trop is normal. Her gfr is in the 30s. 11/14/16 18:20 p was given a albuterol neb. She was given lasix 60mg iv. She was given rocephen 1 gmiv. Departure - Departure Time of Disposition: 03:20 Disposition: Admitted As Inpatient 65 Clinical Impression: History of Coumadin therapy Pneumonia involving right lung Qualifiers: Pneumonia type: due to unspecified organism Lung location: unspecified part of lung Qualified Code(s): J18.9 - Pneumonia, unspecified organism Fluid overload Qualifiers: Hypervolemia type: other Qualified Code(s): E87.79 - Other fluid overload Atrial fibrillation Qualifiers: Atrial fibrillation type: chronic Qualified Code(s): I48.2 - Chronic atrial fibrillation - Discharge Information
[2016-11-14] MEDS ORDERED: Furosemide 40 MG/4 ML VIAL IVPUSH ONE (17:49)
[2016-11-14] MEDS: Sodium Chloride 0.9% 1,000 ML IV SCH (18:19)
[2016-11-14] MEDS ORDERED: cefTRIAXone 1 GM in Sodium Chloride 0.9% 50 ML IV ONE (18:21)
[2016-11-14] MEDS ORDERED: Furosemide 40 MG/4 ML VIAL ONE (18:22)
--- NOTE | 2016-11-14 20:44 | PCM.HP ---
H&P History of Present Illness - General Date of Service: 11/14/16 Admit Problem/Dx: Admission Diagnosis/Problem Admission Diagnosis/Problem Pneumonia Source of Information: Patient History Limitations: Reports: No Limitations - History of Present Illness Initial Comments - Free Text/Narative: This is a 81 y/o female that arrives in ER via EMS from [facility]. She reports on Saturday developed a cough, which has progressively gotten worse over the past two days. She reports fever, chills, diarrhea yesterday, she ate breakfast yesterday which she vomited, Evening meal clam chowder which stayed down, today only able to tolerate tea and toast due to severe coughing, weakness and shortness of breath. In the ER, Lab evaluation shows WBC 15.2, HGB 11.8, HCT 36.3, PLT 189, INR 3.45 , PT 38.9, Na+133, K+ 4.3, Cl 99, BUN 25, GFR 42, CR 1.5, Co2 is not elevated, ABG's, CRP 28, BNP 2641, troponine <0.017, Chest xray shows fluid overload and probable infiltrate, O2 sats are down in the 87%, EKG: atrial fib which is chronic, ER meds given IV Lasix 60 mg, IV Rocephin 1 gram, albuterol nebulizer x one Departure; admit to [address] [place] [address] Clinical Impression: Pneumonia involving right lung, Fluid overload, Atrial fibrillation, History of Coumadin therapy - Onset of Symptoms: Reports: Gradual Symptom Onset Date: 11/10/16 Duration of Symptoms: Reports: Getting Worse Location: Reports: Generalized (worsen cough and weakness) Quality: Reports: Ache, Burning Severity: Moderate Improves with: Reports: None Worsens with: Reports: None Associated Symptoms: Reports: Fever/Chills, Nausea/Vomiting, Shortness of Breath , Weakness, Other (diarrhea on 11/13/16, no bowel movement today) headache and bodyaches Pain Score (Numeric/FACES): 5 - Related Data Allergies/Adverse Reactions: Allergies Allergy/AdvReac Type Severity Reaction Status Date / Time amoxicillin Allergy Cannot Verified 11/14/16 17:13 Remember bacitracin Allergy Cannot Verified 11/14/16 17:13 Remember enoxaparin Allergy Cannot Verified 11/14/16 17:13 Remember latex Allergy Cannot Verified 11/14/16 17:13 Remember ramipril Allergy Cannot Verified 11/14/16 17:13 Remember Home Medications: Home Meds Albuterol [Ventolin HFA] 2 puff IH Q4H PRN 09/09/16 [History] Allopurinol [Zyloprim] 100 mg PO DAILY 09/09/16 [History] Aspirin [Ecotrin] 81 mg PO DAILY 09/09/16 [History] Diltiazem HCl [Diltiazem 24Hr Cd] 180 mg PO DAILY 09/09/16 [History] Estrogens, Conjugated [Premarin Vaginal Crm] 0.5 gm VAG DAILY 09/09/16 [History] Furosemide [Lasix] 40 mg PO BID 09/09/16 [History] L.acidoph,Paracasei, B.lactis [Probiotic] 1 cap PO DAILY 09/09/16 [History] Meclizine [Antivert] 25 mg PO TID PRN 09/09/16 [History] Metoprolol Succinate [Toprol Xl] 12.5 mg PO BID 09/09/16 [History] Pravastatin [Pravachol] 10 mg PO BEDTIME 09/09/16 [History] Spironolactone [Aldactone] 25 mg PO BID 09/09/16 [History] Warfarin [Coumadin] 1.5 tab PO DAILY 09/09/16 [History] Warfarin [Coumadin] 2.5 mg PO DAILY 09/09/16 [History] Acetaminophen [Tylenol] 650 mg PO BEDTIME 11/14/16 [History] Calcium Carbonate [Calcium] 500 mg PO BEDTIME 11/14/16 [History] Cholecalciferol (Vitamin D3) [Vitamin D3] 1,000 units PO DAILY 11/14/16 [History ] Diazepam [Valium] 10 mg PO BEDTIME 11/14/16 [History] Ferrous Sulfate 325 mg PO WITHBREAKFAST 11/14/16 [History] Glucosimene-Chondroitin 1 cap PO BID 11/14/16 [History] Past Medical History HEENT History: Reports: Cataract, Impaired Vision Cardiovascular History: Reports: Arrhythmia, High Cholesterol, Hypertension, Pacemaker Respiratory History: Reports: Sleep Apnea Genitourinary History: Reports: Other (See Below) Other Genitourinary History: 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 [employer] History: Reports: Musculoskeletal History: Reports: Arthritis, Osteoarthritis Hematologic History: Reports: Anemia, Anticoagulation Therapy Oncologic (Cancer) History: Reports: Breast, Uterine Other Oncologic History: skin cancer Dermatologic History: Reports: Other (See Below) Other Dermatologic History: skin cancer - Past Surgical History HEENT Surgical History: Reports: Cataract Surgery Cardiovascular Surgical History: Reports: Valve Replacement Female Surgical History: Reports: Breast Reconstruction, Hysterectomy Musculoskeletal Surgical History: Reports: Knee Replacement Other Musculoskeletal Surgeries/Procedures:: 2010 Oncologic Surgical History: Reports: Mastectomy Other Oncologic Surgeries/Procedures: left mastectomy Social & Family History - Tobacco Use Smoking Status *Q: Never Smoker - Caffeine Use Caffeine Use: Reports: None - Alcohol Use Days Per Week of Alcohol Use: 7 Number of Drinks Per Day: 2 Total Drinks Per Week: 14 - Recreational Drug Use Recreational Drug Use: No - Living Situation & Occupation Living situation: Reports: Occupation: Retired (lives with [place] [facility] by Lara. 3 sons, one lives in [facility], one [facility], one last Nov 2015 from complications of alcoholism.) H&P Review of Systems - Review of Systems: Review Of Systems: See Below General: Reports: Fever, Chills, Malaise, Weakness, Decreased Appetite HEENT: Reports: No Symptoms Pulmonary: Reports: Shortness of Breath, Wheezing, Pleuritic Chest Pain, Cough, Sputum Cardiovascular: Reports: Dyspnea on Exertion, Orthopnea Gastrointestinal: Reports: Diarrhea, Nausea, Vomiting Genitourinary: Reports: Frequency Musculoskeletal: Reports: No Symptoms Skin: Reports: Bruising (due to coumadin therapy) Psychiatric: Reports: No Symptoms Neurological: Reports: No Symptoms Hematologic/Lymphatic: Reports: Easy Bruising Immunologic: Reports: No Symptoms Exam - Exam Exam: See Below - Vital Signs Vital Signs: Last Vital Signs Temp 38.0 C 11/14/16 20:36 Pulse 100 11/14/16 20:36 Resp 18 11/14/16 20:36 BP 134/63 11/14/16 20:36 Pulse Ox 91 L 11/14/16 20:36 Weight: 86.183 kg - Exam Quality Assessment: Supplemental Oxygen, DVT Prophylaxis (current coumadin therapy) General: Alert, Oriented, Cooperative, Mild Distress HEENT: PERRLA, Conjunctiva Clear, EACs Clear, EOMI, Hearing Intact, Mucosa Moist & [place], Nares Patent, Normal Nasal Septum, Posterior Pharynx Clear, Pupils Equal, Pupils Reactive, TMs Clear, Glasses Neck: Supple, Trachea Midline Lungs: Decreased Breath Sounds, Crackles, Wheezing Cardiovascular: Irregular Rhythm GI/Abdominal Exam: Normal Bowel Sounds, Soft, Non-Tender, No Organomegaly, Other (obese abdomen difficult to assess for organomegaly or hernia, old well healed surgical scars, ) (Female) Exam: Deferred Rectal (Female) Exam: Deferred Back Exam: Normal Inspection, Full Range of Motion Extremities: Other (skin with bandage noted to right lateral mid calf. ) Peripheral Pulses: 2+: Radial (L), Radial (R), Posterior Tibial (L), Posterior Tibial (R), Dorsalis Pedis (L), Dorsalis Pedis (R) Skin: Warm, Dry, Intact, Decubitis (rt lower leg, lateral mid calf, bandage intact, scant yellowish discharge. ) Neurological: Reflexes Equal Bilateral, Strength Equal Bilateral, Normal Speech Neuro Extensive - Mental Status: Alert, Oriented x3, Normal Mood/Affect, Normal Cognition Neuro Extensive - Motor, Sensory, Reflexes: Other (tremor noted to head (bobbing ) and hands, patient reports has been like that for a long time.) Psychiatric: Alert, Normal Affect, Normal Mood - Patient Data Result Diagrams: 11/14/16 17:02 11/14/16 17:02 EKG INTERPRETATION Rhythm: A-Fib *Q Meaningful Use (ADM) - VTE *Q VTE Criteria *Q: - Stroke *Q Stroke Criteria *Q: - AMI *Q AMI Criteria *Q: - Problem List (1) Skin ulcer of calf SNOMED Code(s): 375529100 ICD Code: L97.209 - NON-PRESSURE CHRONIC ULCER OF UNSP CALF WITH UNSP SEVERITY Status: Acute Priority: Low Current Visit: Yes Qualifiers: Laterality: right Non-pressure ulcer stage: limited to breakdown of skin Qualified Code(s): L97.211 - Non-pressure chronic ulcer of right calf limited to breakdown of skin (2) Atrial fibrillation SNOMED Code(s): 78505605 ICD Code: I48.91 - UNSPECIFIED ATRIAL FIBRILLATION Status: Acute Priority : High Current Visit: Yes Qualifiers: Atrial fibrillation type: chronic Qualified Code(s): I48.2 - Chronic atrial fibrillation (3) Fluid overload SNOMED Code(s): 41228021 ICD Code: E87.70 - FLUID OVERLOAD, UNSPECIFIED Status: Acute Priority: High Current Visit: Yes Qualifiers: Hypervolemia type: other Qualified Code(s): E87.79 - Other fluid overload (4) History of Coumadin therapy SNOMED Code(s): 381804655 ICD Code: Z79.01 - INSPECTOR FILTERS (CURRENT) USE OF ANTICOAGULANTS Status: Acute Priority: High Current Visit: Yes (5) Pneumonia involving right lung SNOMED Code(s): 403641417 ICD Code: J18.9 - PNEUMONIA, UNSPECIFIED ORGANISM Status: Acute Priority : High Current Visit: Yes Qualifiers: Pneumonia type: due to unspecified organism Lung location: unspecified part of lung Qualified Code(s): J18.9 - Pneumonia, unspecified organism Problem List Initiated/Reviewed/Updated: Yes Orders Last 24hrs: Active Orders 24 hr Category Date Time Status Patient Status Manage Transfer [TRANSFER] Routine ADT 11/14/16 20:04 Ordered Resuscitation Status Routine Resus Stat 11/14/16 20:11 Ordered Medication Orders Sodium Chloride (Normal Saline) 1,000 mls @ 100 mls/hr IV ASDIRECTED DIANNA Last Admin: 11/14/16 18:19 Dose: 100 mls/hr Assessment/Plan Comment:: Assessment/Plan Comment:: Right lobe pneumonia - chest x-ray with right density and she does have some crackles in this area. oxygen at 87% -blood and sputum cultures pending. -IV ceftriaxone 1 gram every 24 hours -IV Levoquin 750 mg every 48 hours -duo nebs scheduled -albuterol nebs every 4 hours prn -Robitussin AC or DM every 4 hours prn cough -Supplement oxygen if needed -continuous pulse ox. -IV fluids overnight Normal Saline 100ml/hr Fluid overload; corrected -Lasix 60mg IV in ER -home diuretics ordered for am Atrial Fib.- chronic -telemetry -advised to notify Nurses of any chest pain or shortness of breath -coumadin therapy; 2.5 mg on Wed, Sat. 1.5mg on Sat, Mon, Tue, Thurs, Fri. -am INR, PT Maintenance issues - - DVT prophylaxis - coumadin therapy - GI prophylaxis -IV Protonix 40 mg daily - Nutrition - regular diet - May catheter - not indicated, patient declines CODE STATUS - full code Admission justification - This patient will be admitted for inpatient services and is medically appropriate meeting medical necessity for inpatient admission as outlined in my documentation. I reasonably expect the patient will require inpatient services that span a period time over 2 midnights. I reasonably expect this patient to be discharged or transferred within 96 hours after admission to the [facility]. Disposition - anticipate discharge home with after the hospital stay Primary care physician - Dr Jimenez [facility] Hospitalist: Jason Bhagat M.D.
[2016-11-14] MEDS ORDERED: Morphine 2 MG/ML Syringe IVPUSH PRN (20:51)
[2016-11-14] MEDS ORDERED: LORazepam 2 MG/ML MDV IV PRN (20:51)
[2016-11-14] MEDS ORDERED: Ondansetron 4 MG/2 ML SDV IV PRN (20:51)
[2016-11-14] MEDS ORDERED: Albuterol 0.083% 2.5 MG/3 ML Neb Soln NEB PRN (20:51)
[2016-11-14] MEDS ORDERED: Ondansetron 4 MG Tab.DIS PO PRN (20:51)
[2016-11-14] MEDS ORDERED: Docusate Sodium 100 MG Cap PO PRN (20:51)
[2016-11-14] MEDS ORDERED: guaiFENesin/Dextromethorphan 100-10 MG/5 ML Soln 10 ML Cup PO PRN (20:51)
[2016-11-14] MEDS ORDERED: Furosemide 40 MG Tab PO SCH (21:00)
[2016-11-14] MEDS: Metoprolol Succinate 25 MG Tab.ER PO SCH (21:30)
[2016-11-14] MEDS: Acetaminophen 325 MG Tab PO PRN (21:31)
[2016-11-14] MEDS: Spironolactone 25 MG Tab PO SCH (21:31)
[2016-11-14] MEDS: Codeine/guaiFENesin 100mg-10 MG/5 ML Syrup 10 ML Cup PO PRN (21:31)
[2016-11-14] MEDS: Diazepam 5 MG Tab PO SCH (21:34)
[2016-11-14] MEDS: Pravastatin 20 MG Tab PO SCH (21:34)
[2016-11-14] MEDS: Levofloxacin/Dextrose 5%-Water 750 MG in Premix Bag 1 BAG IV SCH (21:34)
[2016-11-14] MEDS: Albuterol/Ipratropium 3.0-0.5 MG/3 ML Neb Soln NEB SCH (21:34)
[2016-11-15] MEDS ORDERED: Temazepam 15 MG Cap PO PRN (00:45)
[2016-11-15] MEDS: Sodium Chloride 0.9% 1,000 ML IV SCH ×2 (05:14→15:34)
[2016-11-15] MEDS: Albuterol/Ipratropium 3.0-0.5 MG/3 ML Neb Soln NEB SCH ×4 (05:14→20:49)
[2016-11-15] MEDS: Codeine/guaiFENesin 100mg-10 MG/5 ML Syrup 10 ML Cup PO PRN (05:14)
[2016-11-15] MEDS ORDERED: Pantoprazole 40 MG Vial IVPUSH SCH (07:30)
[2016-11-15] MEDS ORDERED: Furosemide 40 MG Tab PO SCH (09:00)
--- NOTE | 2016-11-15 09:09 | CR ---
Chest 2V HISTORY: Shortness of breath. COMPARISON: 10/28/2008. FINDINGS: Left-sided pacemaker. Prior aortic and mitral valve replacement. Stable moderate cardiomega ly. Interstitial prominence in the perihilar regions and lower lung bases could represent mild edema or inflammatory process. No effusions. Impression: 1. Stable moderate cardiomegaly. 2. Interstitial prominence could represent mild interstitial edema or inflammatory process. No dense focal consolidation.
[2016-11-15] MEDS: Furosemide 40 MG Tab PO SCH ×2 (10:29→13:52)
[2016-11-15] MEDS: Pantoprazole 40 MG Tab.CR PO SCH (10:29)
[2016-11-15] MEDS: Spironolactone 25 MG Tab PO SCH ×2 (10:30→20:53)
[2016-11-15] MEDS: Diltiazem 180 MG Cap.CD PO SCH (10:30)
[2016-11-15] MEDS: Metoprolol Succinate 25 MG Tab.ER PO SCH ×2 (10:30→20:53)
[2016-11-15] MEDS: Allopurinol 100 MG Tab PO SCH (10:31)
--- NOTE | 2016-11-15 13:13 | PCM.PN ---
- General Info Date of Service: 11/15/16 Functional Status: Reports: Pain Controlled, Tolerating Diet - Review of Systems General: Reports: Weakness Pulmonary: Reports: Shortness of Breath, Cough Systems Review Comment:: No acute events since admission. Has a loose but nonproductive cough and feels short of breath. These are similar since the time of admission. No significant fevers overnight. She is weak and does not have much of an appetite. No significant pain issues at this time. Tolerating current antibiotics. - Patient Data Vitals - Most Recent: Last Vital Signs Temp 37.6 C 11/15/16 11:33 Pulse 104 H 11/15/16 11:33 Resp 20 11/15/16 11:33 BP 117/54 L 11/15/16 11:33 Pulse Ox 93 L 11/15/16 11:33 Weight - Most Recent: 86.183 kg I&O - Last 24 Hours: Intake & Output 11/14/16 11/15/16 11/15/16 22:59 06:59 14:59 Intake Total 100 1365 340 Balance 100 1365 340 Lab Results Last 24 Hours: Laboratory Results - last 24 hr 11/15/16 11/15/16 11/15/16 Range/Units 05:15 05:15 05:15 WBC 12.6 H (4.5-11.0) K/uL RBC 3.21 L (3.30-5.50) M/uL Hgb 10.6 L (12.0-15.0) g/dL Hct 32.3 L (36.0-48.0) % MCV 101 H (80-98) fL MCH 33 H (27-31) pg MCHC 33 (32-36) % Plt Count 168 (150-400) K/uL Add Manual Diff Yes Neutrophils % (Manual) 76 H (36-66) % Band Neutrophils % 3 L (5-11) % Lymphocytes % (Manual) 8 L (24-44) % Monocytes % (Manual) 12 H (2-6) % Eosinophils % (Manual) 1 L (2-4) % PT 31.0 H (9.5-12.0) sec INR 2.78 H (0.80-1.20) Sodium 134 L (140-148) mmol/L Potassium 4.2 (3.6-5.2) mmol/L Chloride 99 L (100-108) mmol/L Carbon Dioxide 25 (21-32) mmol/L Anion Gap 14.2 H (5.0-14.0) mmol/L BUN 39 H (7-18) mg/dL Creatinine 1.6 H (0.6-1.0) mg/dL Est Cr Clr Drug Dosing 26.36 mL/min Estimated GFR (MDRD) 31 L (>60) Glucose 97 (74-106) mg/dL Calcium 8.5 (8.5-10.1) mg/dL C-Reactive Protein 28.14 H (0.0-0.3) mg/dL Med Orders - Current: Current Medications Acetaminophen (Tylenol) 650 mg PO Q4H PRN PRN Reason: Pain (Mild 1-3)/fever Last Admin: 11/14/16 21:31 Dose: 650 mg Albuterol (Proventil Neb Soln) 2.5 mg NEB Q4H PRN PRN Reason: Shortness Of Breath/wheezing Albuterol/Ipratropium (Duoneb 3.0-0.5 Mg/3 Ml) 3 ml NEB QIDRT [facility] Last Admin: 11/15/16 10:50 Dose: 3 ml Allopurinol (Zyloprim) 100 mg PO DAILY [facility] Last Admin: 11/15/16 10:31 Dose: 100 mg Benzonatate (Tessalon Perles) 100 mg PO TID PRN PRN Reason: Cough Diazepam (Valium.) 10 mg PO BEDTIME [facility] Last Admin: 11/14/16 21:34 Dose: 10 mg Diltiazem HCl (Cardizem Cd) 180 mg PO DAILY [facility] Last Admin: 11/15/16 10:30 Dose: 180 mg Docusate Sodium (Colace) 100 mg PO BID PRN PRN Reason: Constipation Furosemide (Lasix) 40 mg PO BIDDIURETIC [facility] Last Admin: 11/15/16 10:29 Dose: 40 mg Guaifenesin/Codeine Phosphate (Robitussin Ac) 10 ml PO Q4H PRN PRN Reason: Cough Last Admin: 11/15/16 05:14 Dose: 10 ml Guaifenesin/Dextromethorphan (Robitussin Dm) 10 ml PO Q4H PRN PRN Reason: Cough Sodium Chloride (Normal Saline) 1,000 mls @ 100 mls/hr IV ASDIRECTED [facility] Last Admin: 11/15/16 05:14 Dose: 100 mls/hr Ceftriaxone Sodium 1 gm/ (Sodium Chloride) 50 mls @ 100 mls/hr IV Q24H [facility] Levofloxacin/Dextrose 750 mg/ (Premix) 150 mls @ 100 mls/hr IV Q48H [facility] Last Admin: 11/14/16 21:34 Dose: 100 mls/hr Lorazepam (Ativan) 1 mg IV Q6H PRN PRN Reason: Nausea/Vomiting Metoprolol Succinate (Toprol Xl) 12.5 mg PO BID [facility] Last Admin: 11/15/16 10:30 Dose: 12.5 mg Morphine Sulfate (Morphine) 2 mg IVPUSH Q2H PRN PRN Reason: Pain (severe 7-10) Ondansetron HCl (Zofran Odt) 4 mg PO Q6H PRN PRN Reason: Nausea able to take PO Ondansetron HCl (Zofran) 4 mg IV Q4H PRN PRN Reason: Nausea/Vomiting Pantoprazole Sodium (Protonix) 40 mg PO ACBREAKFAST [facility] Last Admin: 11/15/16 10:29 Dose: 40 mg Pravastatin Sodium (Pravachol) 10 mg PO BEDTIME [facility] Last Admin: 11/14/16 21:34 Dose: 10 mg Spironolactone (Aldactone) 25 mg PO BID [facility] Last Admin: 11/15/16 10:30 Dose: 25 mg Temazepam (Restoril) 15 mg PO BEDTIME PRN PRN Reason: Sleep Last Admin: 11/15/16 01:08 Dose: 15 mg Warfarin Sodium (Coumadin) 1.5 mg PO SuMoTuThFr@1300 [facility] Warfarin Sodium (Coumadin) 2.5 mg PO WeSa@1300 [facility] Discontinued Medications Albuterol (Proventil Neb Soln) 2.5 mg NEB ONETIME ONE Stop: 11/14/16 17:23 Last Admin: 11/14/16 17:30 Dose: 2.5 mg Albuterol/Ipratropium (Duoneb 3.0-0.5 Mg/3 Ml) 3 ml NEB QID [facility] Last Admin: 11/15/16 05:14 Dose: 3 ml Furosemide (Lasix) 60 mg IVPUSH ONETIME ONE Stop: 11/14/16 17:50 Last Admin: 11/14/16 18:20 Dose: 60 mg Furosemide (Lasix) Confirm Administered Dose 40 mg .ROUTE .STK-MED ONE Stop: 11/14/16 18:23 Last Admin: 11/14/16 20:29 Dose: Not Given Furosemide (Lasix) 40 mg PO BID [facility] Last Admin: 11/15/16 05:27 Dose: Not Given Furosemide (Lasix) 40 mg PO BID [facility] Ceftriaxone Sodium 1 gm/ (Sodium Chloride) 50 mls @ 100 mls/hr IV ONETIME ONE Stop: 11/14/16 18:50 Last Admin: 11/14/16 18:46 Dose: 100 mls/hr - Exam Quality Assessment: Supplemental Oxygen General: Alert, Oriented, Cooperative, Mild Distress Neck: Supple Lungs: Crackles (both bases). No: Normal Respiratory Effort (mild increased work of breathing), Wheezing Cardiovascular: Regular Rate, Regular Rhythm GI/Abdominal Exam: Normal Bowel Sounds, Soft, No Distention Extremities: Pedal Edema (pitting edema both legs to below the knee). No: Increased Warmth Skin: Warm, Dry, Other (chronic venous stasis both legs to near the knee) Psy/Mental Status: Alert, Normal Affect - Problem List Review Problem List Initiated/Reviewed/Updated: Yes - My Orders Last 24 Hours: My Active Orders 11/15/16 13:00 Warfarin [Coumadin] 1.5 mg PO SuMoTuThFr@1300 11/16/16 05:00 BASIC METABOLIC PANEL,BMP [CHEM] Timed CBC W/O DIFF,HEMOGRAM [HEME] Timed (1) 11/17/16 13:00 Warfarin [Coumadin] 2.5 mg PO WeSa@1300 - Plan Plan:: Assessment/Plan Comment:: Right middle lobe pneumonia - tolerating antibiotics. Continues to require supplemental oxygen and a symptomatic with minimal activity. Cultures pending. -blood and sputum cultures pending. -IV ceftriaxone 1 gram every 24 hours -IV Levoquin 750 mg every 48 hours -duo nebs scheduled -albuterol nebs every 4 hours prn -Robitussin AC or DM every 4 hours prn cough -Supplement oxygen if needed -continuous pulse ox. -IV fluids overnight Normal Saline 100ml/hr CKD III - kidney function stable since the time of admission but I suspect there may be some room for improvement. I think intravascularly she is a little depleted and IV fluids will be continued. Chronic diastolic congestive heart failure - mild edema but otherwise well compensated. -Continue medical management -home diuretics ordered for am Chronic atrial fibrillation - rate controlled at this time. INR is therapeutic. -telemetry -Continue warfarin -Daily INR Maintenance issues - - DVT prophylaxis - coumadin therapy - GI prophylaxis -IV Protonix 40 mg daily - Nutrition - regular diet Disposition - anticipate discharge home with after the hospital stay Jason Bhagat M.D.
[2016-11-15] MEDS ORDERED: cefTRIAXone 1 GM in Sodium Chloride 0.9% 50 ML IV SCH (18:00)
[2016-11-15] MEDS: Acetaminophen 325 MG Tab PO PRN (18:24)
[2016-11-15] MEDS: Pravastatin 20 MG Tab PO SCH (20:54)
[2016-11-15] MEDS: Diazepam 5 MG Tab PO SCH (20:57)
[2016-11-15] MEDS: NYQUIL PO PRN (22:00)
[2016-11-16] MEDS: Sodium Chloride 0.9% 1,000 ML IV SCH (02:10)
[2016-11-16] MEDS: NYQUIL PO PRN ×2 (03:38→20:39)
[2016-11-16] MEDS: Pantoprazole 40 MG Tab.CR PO SCH (07:27)
[2016-11-16] MEDS: Albuterol/Ipratropium 3.0-0.5 MG/3 ML Neb Soln NEB SCH ×4 (07:28→20:39)
[2016-11-16] MEDS: Furosemide 40 MG Tab PO SCH ×2 (09:02→14:58)
[2016-11-16] MEDS: Spironolactone 25 MG Tab PO SCH ×2 (09:03→20:40)
[2016-11-16] MEDS: Diltiazem 180 MG Cap.CD PO SCH (09:04)
[2016-11-16] MEDS: Metoprolol Succinate 25 MG Tab.ER PO SCH ×2 (09:04→20:41)
[2016-11-16] MEDS: Allopurinol 100 MG Tab PO SCH (09:04)
[2016-11-16] MEDS: Benzonatate 100 MG Cap PO PRN ×2 (09:12→16:05)
[2016-11-16] MEDS: Acetaminophen 325 MG Tab PO PRN ×3 (09:24→20:39)
--- NOTE | 2016-11-16 10:35 | PCM.PN ---
- General Info Date of Service: 11/16/16 Functional Status: Reports: Pain Controlled, Tolerating Diet, Ambulating - Review of Systems General: Reports: Weakness Pulmonary: Reports: Shortness of Breath, Cough Cardiovascular: Reports: Edema Systems Review Comment:: No acute events overnight. She feels a little better today with a slight improvement in her energy as well as her breathing. Still short of breath with activity. Has a loose but nonproductive cough. No fevers overnight. Still requiring supplemental oxygen but has had a slow improvement in oxygenation. No complaints of chest pain or abdominal pain. Appetite slowly improving. - Patient Data Vitals - Most Recent: Last Vital Signs Temp 36.3 C 11/16/16 07:00 Pulse 78 11/16/16 09:04 Resp 18 11/16/16 07:00 BP 111/54 L 11/16/16 09:04 Pulse Ox 96 11/16/16 07:32 Weight - Most Recent: 86.183 kg I&O - Last 24 Hours: Intake & Output 11/15/16 11/16/16 11/16/16 22:59 06:59 14:59 Intake Total 410 120 440 Output Total 300 350 Balance 110 120 90 Lab Results Last 24 Hours: Laboratory Results - last 24 hr 11/16/16 11/16/16 Range/Units 04:30 04:30 WBC 12.8 H (4.5-11.0) K/uL RBC 3.07 L (3.30-5.50) M/uL Hgb 9.9 L (12.0-15.0) g/dL Hct 31.2 L (36.0-48.0) % MCV 102 H (80-98) fL MCH 32 H (27-31) pg MCHC 32 (32-36) % Plt Count 166 (150-400) K/uL Sodium 136 L (140-148) mmol/L Potassium 4.1 (3.6-5.2) mmol/L Chloride 102 (100-108) mmol/L Carbon Dioxide 25 (21-32) mmol/L Anion Gap 13.1 (5.0-14.0) mmol/L BUN 39 H (7-18) mg/dL Creatinine 1.6 H (0.6-1.0) mg/dL Est Cr Clr Drug Dosing 26.29 mL/min Estimated GFR (MDRD) 31 L (>60) Glucose 97 (74-106) mg/dL Calcium 7.9 L (8.5-10.1) mg/dL Med Orders - Current: Current Medications Acetaminophen (Tylenol) 650 mg PO Q4H PRN PRN Reason: Pain (Mild 1-3)/fever Last Admin: 11/16/16 09:24 Dose: 650 mg Albuterol (Proventil Neb Soln) 2.5 mg NEB Q4H PRN PRN Reason: Shortness Of Breath/wheezing Albuterol/Ipratropium (Duoneb 3.0-0.5 Mg/3 Ml) 3 ml NEB QIDRT [facility] Last Admin: 11/16/16 07:28 Dose: 3 ml Allopurinol (Zyloprim) 100 mg PO DAILY [facility] Last Admin: 11/16/16 09:04 Dose: 100 mg Benzonatate (Tessalon Perles) 100 mg PO TID PRN PRN Reason: Cough Last Admin: 11/16/16 09:12 Dose: 100 mg Diazepam (Valium.) 10 mg PO BEDTIME [facility] Last Admin: 11/15/16 20:57 Dose: 10 mg Diltiazem HCl (Cardizem Cd) 180 mg PO DAILY [facility] Last Admin: 11/16/16 09:04 Dose: 180 mg Docusate Sodium (Colace) 100 mg PO BID PRN PRN Reason: Constipation Furosemide (Lasix) 40 mg PO BIDDIURETIC [facility] Last Admin: 11/16/16 09:02 Dose: 40 mg Guaifenesin/Codeine Phosphate (Robitussin Ac) 10 ml PO Q4H PRN PRN Reason: Cough Last Admin: 11/15/16 05:14 Dose: 10 ml Guaifenesin/Dextromethorphan (Robitussin Dm) 10 ml PO Q4H PRN PRN Reason: Cough Levofloxacin/Dextrose 750 mg/ (Premix) 150 mls @ 100 mls/hr IV Q48H [facility] Last Admin: 11/14/16 21:34 Dose: 100 mls/hr Lorazepam (Ativan) 1 mg IV Q6H PRN PRN Reason: Nausea/Vomiting Metoprolol Succinate (Toprol Xl) 12.5 mg PO BID [facility] Last Admin: 11/16/16 09:04 Dose: 12.5 mg Morphine Sulfate (Morphine) 2 mg IVPUSH Q2H PRN PRN Reason: Pain (severe 7-10) Nyquil Gel Caps (Own Med) 2 each PO Q4H PRN PRN Reason: COUGH / SLEEP Last Admin: 11/16/16 03:38 Dose: 2 each Ondansetron HCl (Zofran Odt) 4 mg PO Q6H PRN PRN Reason: Nausea able to take PO Ondansetron HCl (Zofran) 4 mg IV Q4H PRN PRN Reason: Nausea/Vomiting Pantoprazole Sodium (Protonix) 40 mg PO ACBREAKFAST [facility] Last Admin: 11/16/16 07:27 Dose: 40 mg Pravastatin Sodium (Pravachol) 10 mg PO BEDTIME [facility] Last Admin: 11/15/16 20:54 Dose: 10 mg Spironolactone (Aldactone) 25 mg PO BID [facility] Last Admin: 11/16/16 09:03 Dose: 25 mg Temazepam (Restoril) 15 mg PO BEDTIME PRN PRN Reason: Sleep Last Admin: 11/15/16 01:08 Dose: 15 mg Warfarin Sodium (Coumadin) 1.5 mg PO SuMoTuThFr@1300 [facility] Last Admin: 11/15/16 13:52 Dose: 1.5 mg Warfarin Sodium (Coumadin) 2.5 mg PO WeSa@1300 [facility] Discontinued Medications Albuterol (Proventil Neb Soln) 2.5 mg NEB ONETIME ONE Stop: 11/14/16 17:23 Last Admin: 11/14/16 17:30 Dose: 2.5 mg Albuterol/Ipratropium (Duoneb 3.0-0.5 Mg/3 Ml) 3 ml NEB QID [facility] Last Admin: 11/15/16 05:14 Dose: 3 ml Furosemide (Lasix) 60 mg IVPUSH ONETIME ONE Stop: 11/14/16 17:50 Last Admin: 11/14/16 18:20 Dose: 60 mg Furosemide (Lasix) Confirm Administered Dose 40 mg .ROUTE .STK-MED ONE Stop: 11/14/16 18:23 Last Admin: 11/14/16 20:29 Dose: Not Given Furosemide (Lasix) 40 mg PO BID [facility] Last Admin: 11/15/16 05:27 Dose: Not Given Furosemide (Lasix) 40 mg PO BID [facility] Sodium Chloride (Normal Saline) 1,000 mls @ 100 mls/hr IV ASDIRECTED [facility] Last Admin: 11/16/16 02:10 Dose: 100 mls/hr Ceftriaxone Sodium 1 gm/ (Sodium Chloride) 50 mls @ 100 mls/hr IV ONETIME ONE Stop: 11/14/16 18:50 Last Admin: 11/14/16 18:46 Dose: 100 mls/hr Ceftriaxone Sodium 1 gm/ (Sodium Chloride) 50 mls @ 100 mls/hr IV Q24H [facility] Last Admin: 11/15/16 18:20 Dose: 100 mls/hr - Exam Quality Assessment: Supplemental Oxygen General: Alert, Oriented, Cooperative, No Acute Distress Neck: Supple Lungs: Normal Respiratory Effort, Decreased Breath Sounds (right lung base), Rales (left lung base) Cardiovascular: Regular Rate, Regular Rhythm GI/Abdominal Exam: Soft, No Distention Extremities: Pedal Edema (pitting edema both legs from feet to below the knee). No: Increased Warmth Skin: Warm, Dry, Rash (chronic venous stasis both legs) Psy/Mental Status: Alert, Normal Affect - Problem List Review Problem List Initiated/Reviewed/Updated: Yes - My Orders Last 24 Hours: My Active Orders 11/15/16 13:00 Warfarin [Coumadin] 1.5 mg PO SuMoTuThFr@1300 11/15/16 21:33 Non-Formulary Medication [NF Drug] 2 each PO Q4H PRN 11/16/16 10:30 Non-Formulary Medication [NF Drug] 2 each PO DAILY PRN 11/16/16 10:31 Discontinue Telemetry Monitoring [Cardiac Monitoring Discontinue] [RC] Click to Edit 11/16/16 10:32 Up With Assistance [RC] ASDIRECTED Convert IV to Saline Lock [OM.PC] Routine 11/17/16 05:00 BASIC METABOLIC PANEL,BMP [CHEM] Timed CBC W/O DIFF,HEMOGRAM [HEME] Timed (1) INR,PT,PROTHROMBIN TIME [COAG] Timed 11/17/16 13:00 Warfarin [Coumadin] 2.5 mg PO WeSa@1300 - Plan Plan:: Assessment/Plan Comment:: Right middle lobe pneumonia - tolerating antibiotics. Continues to require supplemental oxygen and a symptomatic with minimal activity. Cultures pending. -blood and sputum cultures pending. -Continue levofloxacin -duo nebs scheduled -albuterol nebs every 4 hours prn -DayQuil and NyQuil for symptom relief -Supplement oxygen if needed -Saline lock IV fluids CKD III - kidney function stable since the time of admission. Chronic diastolic congestive heart failure - mild edema but otherwise well compensated. -Continue medical management -Continue diuretics Chronic atrial fibrillation - rate controlled at this time. INR is therapeutic. -telemetry -Continue warfarin -Daily INR Maintenance issues - - DVT prophylaxis - coumadin therapy - GI prophylaxis -PPI - Nutrition - regular diet Disposition - anticipate discharge home with after the hospital stay Jason Bhagat M.D.
[2016-11-16] MEDS: DAYQUIL PO PRN (12:15)
[2016-11-16] MEDS: Levofloxacin/Dextrose 5%-Water 750 MG in Premix Bag 1 BAG IV SCH (20:39)
[2016-11-16] MEDS: Diazepam 5 MG Tab PO SCH (20:39)
[2016-11-16] MEDS: Pravastatin 20 MG Tab PO SCH (20:40)
[2016-11-17] MEDS: DAYQUIL PO PRN (06:28)
[2016-11-17] MEDS: Benzonatate 100 MG Cap PO PRN ×2 (06:30→20:48)
[2016-11-17] MEDS: Albuterol/Ipratropium 3.0-0.5 MG/3 ML Neb Soln NEB SCH ×4 (07:22→20:47)
[2016-11-17] MEDS: Pantoprazole 40 MG Tab.CR PO SCH (07:25)
[2016-11-17] MEDS: Furosemide 40 MG Tab PO SCH ×2 (07:26→13:47)
[2016-11-17] MEDS: Metoprolol Succinate 25 MG Tab.ER PO SCH ×2 (09:29→21:00)
[2016-11-17] MEDS: Diltiazem 180 MG Cap.CD PO SCH (09:30)
[2016-11-17] MEDS: Spironolactone 25 MG Tab PO SCH ×2 (09:30→20:50)
[2016-11-17] MEDS: Allopurinol 100 MG Tab PO SCH (09:31)
--- NOTE | 2016-11-17 11:58 | PCM.PN ---
- General Info Date of Service: 11/17/16 Functional Status: Reports: Pain Controlled, Tolerating Diet, Ambulating - Review of Systems General: Reports: Weakness Pulmonary: Reports: Shortness of Breath, Cough Systems Review Comment:: No acute events overnight. Feeling a little bit better today with less shortness of breath. She did take a fairly long walk yesterday which went okay. Still requiring supplemental oxygen. Still has a cough but this seems a little bit better. Blood pressures are stable. Cultures are negative so far. - Patient Data Vitals - Most Recent: Last Vital Signs Temp 36.4 C 11/17/16 07:34 Pulse 82 11/17/16 09:29 Resp 20 11/17/16 07:34 BP 112/63 11/17/16 09:29 Pulse Ox 2 L 11/17/16 07:34 Weight - Most Recent: 86.183 kg I&O - Last 24 Hours: Intake & Output 11/16/16 11/17/16 11/17/16 22:59 06:59 14:59 Intake Total 150 450 Output Total 200 Balance 150 250 Lab Results Last 24 Hours: Laboratory Results - last 24 hr 11/17/16 11/17/16 11/17/16 Range/Units 05:00 05:00 05:00 WBC 12.5 H (4.5-11.0) K/uL RBC 3.12 L (3.30-5.50) M/uL Hgb 10.0 L (12.0-15.0) g/dL Hct 31.6 L (36.0-48.0) % MCV 101 H (80-98) fL MCH 32 H (27-31) pg MCHC 32 (32-36) % Plt Count 184 (150-400) K/uL PT 44.7 H (9.5-12.0) sec INR 3.95 H (0.80-1.20) Sodium 135 L (140-148) mmol/L Potassium 5.0 (3.6-5.2) mmol/L Chloride 103 (100-108) mmol/L Carbon Dioxide 25 (21-32) mmol/L Anion Gap 12.0 (5.0-14.0) mmol/L BUN 40 H (7-18) mg/dL Creatinine 1.7 H (0.6-1.0) mg/dL Est Cr Clr Drug Dosing 24.75 mL/min Estimated GFR (MDRD) 29 L (>60) Glucose 103 (74-106) mg/dL Calcium 7.7 L (8.5-10.1) mg/dL Med Orders - Current: Current Medications Acetaminophen (Tylenol) 650 mg PO Q4H PRN PRN Reason: Pain (Mild 1-3)/fever Last Admin: 11/16/16 20:39 Dose: 650 mg Albuterol (Proventil Neb Soln) 2.5 mg NEB Q4H PRN PRN Reason: Shortness Of Breath/wheezing Albuterol/Ipratropium (Duoneb 3.0-0.5 Mg/3 Ml) 3 ml NEB QIDRT [facility] Last Admin: 11/17/16 11:04 Dose: Not Given Allopurinol (Zyloprim) 100 mg PO DAILY [facility] Last Admin: 11/17/16 09:31 Dose: 100 mg Benzonatate (Tessalon Perles) 100 mg PO TID PRN PRN Reason: Cough Last Admin: 11/17/16 06:30 Dose: 100 mg Diazepam (Valium.) 10 mg PO BEDTIME [facility] Last Admin: 11/16/16 20:39 Dose: 10 mg Diltiazem HCl (Cardizem Cd) 180 mg PO DAILY [facility] Last Admin: 11/17/16 09:30 Dose: 180 mg Docusate Sodium (Colace) 100 mg PO BID PRN PRN Reason: Constipation Furosemide (Lasix) 40 mg PO BIDDIURETIC [facility] Last Admin: 11/17/16 07:26 Dose: 40 mg Guaifenesin/Codeine Phosphate (Robitussin Ac) 10 ml PO Q4H PRN PRN Reason: Cough Last Admin: 11/15/16 05:14 Dose: 10 ml Guaifenesin/Dextromethorphan (Robitussin Dm) 10 ml PO Q4H PRN PRN Reason: Cough Levofloxacin/Dextrose 750 mg/ (Premix) 150 mls @ 100 mls/hr IV Q48H [facility] Last Admin: 11/16/16 20:39 Dose: 100 mls/hr Lactobacillus Rhamnosus (Culturelle) 1 cap PO BID [facility] Lorazepam (Ativan) 1 mg IV Q6H PRN PRN Reason: Nausea/Vomiting Metoprolol Succinate (Toprol Xl) 12.5 mg PO BID [facility] Last Admin: 11/17/16 09:29 Dose: 12.5 mg Morphine Sulfate (Morphine) 2 mg IVPUSH Q2H PRN PRN Reason: Pain (severe 7-10) Nyquil Gel Caps (Own Med) 2 each PO Q4H PRN PRN Reason: COUGH / SLEEP Last Admin: 11/16/16 20:39 Dose: 2 each Ondansetron HCl (Zofran Odt) 4 mg PO Q6H PRN PRN Reason: Nausea able to take PO Ondansetron HCl (Zofran) 4 mg IV Q4H PRN PRN Reason: Nausea/Vomiting Pantoprazole Sodium (Protonix) 40 mg PO ACBREAKFAST [facility] Last Admin: 11/17/16 07:25 Dose: 40 mg Dayquil (Apap/Dextromethorphan/Phenyl)Ptom 2 each PO DAILY PRN PRN Reason: COUGH Last Admin: 11/17/16 06:28 Dose: 2 each Pravastatin Sodium (Pravachol) 10 mg PO BEDTIME [facility] Last Admin: 11/16/16 20:40 Dose: 10 mg Spironolactone (Aldactone) 25 mg PO BID [facility] Last Admin: 11/17/16 09:30 Dose: 25 mg Temazepam (Restoril) 15 mg PO BEDTIME PRN PRN Reason: Sleep Last Admin: 11/15/16 01:08 Dose: 15 mg Discontinued Medications Albuterol (Proventil Neb Soln) 2.5 mg NEB ONETIME ONE Stop: 11/14/16 17:23 Last Admin: 11/14/16 17:30 Dose: 2.5 mg Albuterol/Ipratropium (Duoneb 3.0-0.5 Mg/3 Ml) 3 ml NEB QID [facility] Last Admin: 11/15/16 05:14 Dose: 3 ml Furosemide (Lasix) 60 mg IVPUSH ONETIME ONE Stop: 11/14/16 17:50 Last Admin: 11/14/16 18:20 Dose: 60 mg Furosemide (Lasix) Confirm Administered Dose 40 mg .ROUTE .STK-MED ONE Stop: 11/14/16 18:23 Last Admin: 11/14/16 20:29 Dose: Not Given Furosemide (Lasix) 40 mg PO BID [facility] Last Admin: 11/15/16 05:27 Dose: Not Given Furosemide (Lasix) 40 mg PO BID [facility] Sodium Chloride (Normal Saline) 1,000 mls @ 100 mls/hr IV ASDIRECTED [facility] Last Admin: 11/16/16 02:10 Dose: 100 mls/hr Ceftriaxone Sodium 1 gm/ (Sodium Chloride) 50 mls @ 100 mls/hr IV ONETIME ONE Stop: 11/14/16 18:50 Last Admin: 11/14/16 18:46 Dose: 100 mls/hr Ceftriaxone Sodium 1 gm/ (Sodium Chloride) 50 mls @ 100 mls/hr IV Q24H [facility] Last Admin: 11/15/16 18:20 Dose: 100 mls/hr Warfarin Sodium (Coumadin) 1.5 mg PO SuMoTuThFr@1300 [facility] Last Admin: 11/16/16 12:16 Dose: 1.5 mg Warfarin Sodium (Coumadin) 2.5 mg PO WeSa@1300 [facility] - Exam Quality Assessment: Supplemental Oxygen General: Alert, Oriented, Cooperative, No Acute Distress Neck: Supple Lungs: Normal Respiratory Effort, Rales (left lung base). No: Decreased Breath Sounds, Wheezing Cardiovascular: Regular Rate, Regular Rhythm GI/Abdominal Exam: Normal Bowel Sounds, Soft, No Distention Extremities: Pedal Edema (mild bilateral ankle edema). No: Increased Warmth Skin: Warm, Dry Psy/Mental Status: Alert, Normal Affect - Problem List Review Problem List Initiated/Reviewed/Updated: Yes - My Orders Last 24 Hours: My Active Orders 11/16/16 12:00 Patient's Own Medication [Ptom] 2 each PO DAILY PRN 11/17/16 11:57 RT Acapella [RESPCARE] Routine 11/17/16 12:00 Lactobacillus Rhamnosus GG [Culturelle] 1 cap PO BID 11/18/16 05:00 BASIC METABOLIC PANEL,BMP [CHEM] Timed CBC W/O DIFF,HEMOGRAM [HEME] Timed (1) INR,PT,PROTHROMBIN TIME [COAG] Timed - Plan Plan:: Assessment/Plan Comment:: Right middle lobe pneumonia - tolerating antibiotics. Continues to require supplemental oxygen and a symptomatic with minimal activity. Cultures pending. -blood and sputum cultures pending -Continue levofloxacin -duo nebs scheduled -albuterol nebs every 4 hours prn -DayQuil and NyQuil for symptom relief -Supplement oxygen if needed -Saline lock IV fluids CKD III - kidney function stable since the time of admission. Chronic diastolic congestive heart failure - mild edema but otherwise well compensated. -Continue medical management -Continue diuretics Chronic atrial fibrillation - rate controlled at this time. INR is supratherapeutic. -Hold warfarin today -Daily INR Maintenance issues - - DVT prophylaxis - coumadin therapy - GI prophylaxis -PPI - Nutrition - regular diet Disposition - anticipate discharge home with after the hospital stay Jason Bhagat M.D.
[2016-11-17] MEDS ORDERED: Warfarin 2.5 MG Tab PO SCH (13:00)
[2016-11-17] MEDS: Lactobacillus Rhamnosus GG (Probiotic) Cap PO SCH ×2 (13:48→20:50)
[2016-11-17] MEDS: Diazepam 5 MG Tab PO SCH (20:48)
[2016-11-17] MEDS: Acetaminophen 325 MG Tab PO PRN (20:48)
[2016-11-17] MEDS: Pravastatin 20 MG Tab PO SCH (20:49)
[2016-11-17] MEDS: NYQUIL PO PRN (23:33)
[2016-11-18] MEDS: Benzonatate 100 MG Cap PO PRN (03:24)
[2016-11-18] MEDS: DAYQUIL PO PRN ×2 (06:06→15:45)
[2016-11-18] MEDS: Diltiazem 180 MG Cap.CD PO SCH (08:26)
[2016-11-18] MEDS: Allopurinol 100 MG Tab PO SCH (08:27)
[2016-11-18] MEDS: Albuterol/Ipratropium 3.0-0.5 MG/3 ML Neb Soln NEB SCH ×4 (08:27→20:05)
[2016-11-18] MEDS: Metoprolol Succinate 25 MG Tab.ER PO SCH ×2 (08:27→20:06)
[2016-11-18] MEDS: Spironolactone 25 MG Tab PO SCH ×2 (08:27→20:05)
[2016-11-18] MEDS: Lactobacillus Rhamnosus GG (Probiotic) Cap PO SCH ×2 (08:27→20:05)
[2016-11-18] MEDS: Pantoprazole 40 MG Tab.CR PO SCH (08:27)
[2016-11-18] MEDS: Furosemide 40 MG Tab PO SCH ×2 (08:27→13:31)
--- NOTE | 2016-11-18 14:26 | PCM.PN ---
- General Info Date of Service: 11/18/16 Functional Status: Reports: Pain Controlled, Tolerating Diet, Ambulating - Review of Systems General: Reports: Weakness Pulmonary: Reports: Shortness of Breath, Cough Systems Review Comment:: No acute events overnight. She did have mild tachycardia and mild hypoxia after a walk without oxygen last night. She thinks she feels about the same today as yesterday. Oxygenation seems a little better with improvements in oxygenation and a decrease in her supplemental oxygen requirement. Cough seems to be the most troubling symptom for her at this time. She is tolerating her current antibiotics. White blood cell count is improving. Kidney function is stable. INR slightly supratherapeutic side. - Patient Data Vitals - Most Recent: Last Vital Signs Temp 36.5 C 11/18/16 11:00 Pulse 84 11/18/16 11:00 Resp 20 11/18/16 11:00 BP 128/67 11/18/16 11:00 Pulse Ox 93 L 11/18/16 11:00 Weight - Most Recent: 86.183 kg I&O - Last 24 Hours: Intake & Output 11/17/16 11/18/16 11/18/16 22:59 06:59 14:59 Intake Total 360 250 540 Output Total 900 650 Balance -540 250 -110 Lab Results Last 24 Hours: Laboratory Results - last 24 hr 11/18/16 11/18/16 11/18/16 Range/Units 04:00 04:00 04:00 WBC 11.6 H (4.5-11.0) K/uL RBC 3.03 L (3.30-5.50) M/uL Hgb 9.7 L (12.0-15.0) g/dL Hct 30.5 L (36.0-48.0) % MCV 101 H (80-98) fL MCH 32 H (27-31) pg MCHC 32 (32-36) % Plt Count 199 (150-400) K/uL PT 35.8 H (9.5-12.0) sec INR 3.19 H (0.80-1.20) Sodium 137 L (140-148) mmol/L Potassium 4.3 (3.6-5.2) mmol/L Chloride 103 (100-108) mmol/L Carbon Dioxide 27 (21-32) mmol/L Anion Gap 11.3 (5.0-14.0) mmol/L BUN 38 H (7-18) mg/dL Creatinine 1.6 H (0.6-1.0) mg/dL Est Cr Clr Drug Dosing 26.29 mL/min Estimated GFR (MDRD) 31 L (>60) Glucose 96 (74-106) mg/dL Calcium 8.0 L (8.5-10.1) mg/dL Med Orders - Current: Current Medications Acetaminophen (Tylenol) 650 mg PO Q4H PRN PRN Reason: Pain (Mild 1-3)/fever Last Admin: 11/17/16 20:48 Dose: 650 mg Albuterol (Proventil Neb Soln) 2.5 mg NEB Q4H PRN PRN Reason: Shortness Of Breath/wheezing Albuterol/Ipratropium (Duoneb 3.0-0.5 Mg/3 Ml) 3 ml NEB QIDRT [facility] Last Admin: 11/18/16 08:27 Dose: 3 ml Allopurinol (Zyloprim) 100 mg PO DAILY [facility] Last Admin: 11/18/16 08:27 Dose: 100 mg Benzonatate (Tessalon Perles) 100 mg PO TID PRN PRN Reason: Cough Last Admin: 11/18/16 03:24 Dose: 100 mg Diazepam (Valium.) 10 mg PO BEDTIME [facility] Last Admin: 11/17/16 20:48 Dose: 10 mg Diltiazem HCl (Cardizem Cd) 180 mg PO DAILY [facility] Last Admin: 11/18/16 08:26 Dose: 180 mg Docusate Sodium (Colace) 100 mg PO BID PRN PRN Reason: Constipation Furosemide (Lasix) 40 mg PO BIDDIURETIC [facility] Last Admin: 11/18/16 13:31 Dose: 40 mg Guaifenesin/Codeine Phosphate (Robitussin Ac) 10 ml PO Q4H PRN PRN Reason: Cough Last Admin: 11/15/16 05:14 Dose: 10 ml Guaifenesin/Dextromethorphan (Robitussin Dm) 10 ml PO Q4H PRN PRN Reason: Cough Last Admin: 11/18/16 11:24 Dose: 10 ml Levofloxacin/Dextrose 750 mg/ (Premix) 150 mls @ 100 mls/hr IV Q48H [facility] Last Admin: 11/16/16 20:39 Dose: 100 mls/hr Lactobacillus Rhamnosus (Culturelle) 1 cap PO BID [facility] Last Admin: 11/18/16 08:27 Dose: 1 cap Lorazepam (Ativan) 1 mg IV Q6H PRN PRN Reason: Nausea/Vomiting Metoprolol Succinate (Toprol Xl) 12.5 mg PO BID [facility] Last Admin: 11/18/16 08:27 Dose: 12.5 mg Morphine Sulfate (Morphine) 2 mg IVPUSH Q2H PRN PRN Reason: Pain (severe 7-10) Nyquil Gel Caps (Own Med) 2 each PO Q4H PRN PRN Reason: COUGH / SLEEP Last Admin: 11/17/16 23:33 Dose: 2 each Ondansetron HCl (Zofran Odt) 4 mg PO Q6H PRN PRN Reason: Nausea able to take PO Ondansetron HCl (Zofran) 4 mg IV Q4H PRN PRN Reason: Nausea/Vomiting Pantoprazole Sodium (Protonix) 40 mg PO ACBREAKFAST [facility] Last Admin: 11/18/16 08:27 Dose: 40 mg Dayquil (Apap/Dextromethorphan/Phenyl)Ptom 2 each PO DAILY PRN PRN Reason: COUGH Last Admin: 11/18/16 06:06 Dose: 2 each Pravastatin Sodium (Pravachol) 10 mg PO BEDTIME [facility] Last Admin: 11/17/16 20:49 Dose: 10 mg Senna/Docusate Sodium (Senna Plus) 1 tab PO BID PRN PRN Reason: Constipation Spironolactone (Aldactone) 25 mg PO BID [facility] Last Admin: 11/18/16 08:27 Dose: 25 mg Temazepam (Restoril) 15 mg PO BEDTIME PRN PRN Reason: Sleep Last Admin: 11/15/16 01:08 Dose: 15 mg Discontinued Medications Albuterol (Proventil Neb Soln) 2.5 mg NEB ONETIME ONE Stop: 11/14/16 17:23 Last Admin: 11/14/16 17:30 Dose: 2.5 mg Albuterol/Ipratropium (Duoneb 3.0-0.5 Mg/3 Ml) 3 ml NEB QID [facility] Last Admin: 11/15/16 05:14 Dose: 3 ml Furosemide (Lasix) 60 mg IVPUSH ONETIME ONE Stop: 11/14/16 17:50 Last Admin: 11/14/16 18:20 Dose: 60 mg Furosemide (Lasix) Confirm Administered Dose 40 mg .ROUTE .STK-MED ONE Stop: 11/14/16 18:23 Last Admin: 11/14/16 20:29 Dose: Not Given Furosemide (Lasix) 40 mg PO BID [facility] Last Admin: 11/15/16 05:27 Dose: Not Given Furosemide (Lasix) 40 mg PO BID [facility] Sodium Chloride (Normal Saline) 1,000 mls @ 100 mls/hr IV ASDIRECTED [facility] Last Admin: 11/16/16 02:10 Dose: 100 mls/hr Ceftriaxone Sodium 1 gm/ (Sodium Chloride) 50 mls @ 100 mls/hr IV ONETIME ONE Stop: 11/14/16 18:50 Last Admin: 11/14/16 18:46 Dose: 100 mls/hr Ceftriaxone Sodium 1 gm/ (Sodium Chloride) 50 mls @ 100 mls/hr IV Q24H [facility] Last Admin: 11/15/16 18:20 Dose: 100 mls/hr Warfarin Sodium (Coumadin) 1.5 mg PO SuMoTuThFr@1300 [facility] Last Admin: 11/16/16 12:16 Dose: 1.5 mg Warfarin Sodium (Coumadin) 2.5 mg PO WeSa@1300 [facility] - Exam Quality Assessment: Supplemental Oxygen General: Alert, Oriented, Cooperative, No Acute Distress Neck: Supple Lungs: Normal Respiratory Effort, Rales (Right lung base). No: Wheezing Cardiovascular: Regular Rate, Regular Rhythm GI/Abdominal Exam: Soft, No Distention Extremities: Pedal Edema (Pitting edema of both legs to below the knee). No: Increased Warmth Skin: Warm, Dry Psy/Mental Status: Alert, Normal Affect - Problem List Review Problem List Initiated/Reviewed/Updated: Yes - My Orders Last 24 Hours: My Active Orders 11/17/16 14:00 Docusate Sodium/Sennosides [Senna Plus] 1 tab PO BID PRN 11/19/16 05:00 BASIC METABOLIC PANEL,BMP [CHEM] Timed CBC W/O DIFF,HEMOGRAM [HEME] Timed (1) INR,PT,PROTHROMBIN TIME [COAG] Timed - Plan Plan:: Assessment/Plan Comment:: Right middle lobe pneumonia - tolerating antibiotics. Still requiring supplemental oxygen but this has been improving slowly. Still short of breath with activity and more hypoxic with activity. No positive culture results. Clinically looks a little better each day. -blood and sputum cultures pending -Continue levofloxacin 750 mg every 48 hours -duo nebs scheduled -albuterol nebs every 4 hours prn -DayQuil and NyQuil for symptom relief -Supplement oxygen if needed -Saline lock IV fluids CKD III - kidney function stable since the time of admission. Chronic diastolic congestive heart failure - mild edema but otherwise well compensated. -Continue medical management -Continue diuretics Chronic atrial fibrillation - rate controlled at this time. INR is supratherapeutic. -Hold warfarin today -Daily INR Maintenance issues - - DVT prophylaxis - coumadin therapy - GI prophylaxis -PPI - Nutrition - regular diet Disposition - anticipate discharge home with after the hospital stay, hopefully in the next day or 2 Jason Bhagat M.D.
[2016-11-18] MEDS ORDERED: Patient's Own Medication 1 Each PO PRN (15:43)
[2016-11-18] MEDS ORDERED: NYQUIL PO PRN ×2 (15:49→16:35)
[2016-11-18] MEDS: Levofloxacin/Dextrose 5%-Water 750 MG in Premix Bag 1 BAG IV SCH (20:06)
[2016-11-18] MEDS: Pravastatin 20 MG Tab PO SCH (20:06)
[2016-11-18] MEDS: Acetaminophen 325 MG Tab PO PRN (22:25)
[2016-11-18] MEDS: Diazepam 5 MG Tab PO SCH (22:25)
[2016-11-19] MEDS: Albuterol/Ipratropium 3.0-0.5 MG/3 ML Neb Soln NEB SCH ×3 (07:20→15:04)
[2016-11-19] MEDS: Pantoprazole 40 MG Tab.CR PO SCH (07:52)
[2016-11-19] MEDS: Furosemide 40 MG Tab PO SCH ×2 (08:07→13:22)
[2016-11-19] MEDS: Metoprolol Succinate 25 MG Tab.ER PO SCH (09:08)
[2016-11-19] MEDS: Allopurinol 100 MG Tab PO SCH (09:08)
[2016-11-19] MEDS: Diltiazem 180 MG Cap.CD PO SCH (09:09)
[2016-11-19] MEDS: Lactobacillus Rhamnosus GG (Probiotic) Cap PO SCH (09:09)
[2016-11-19] MEDS: Spironolactone 25 MG Tab PO SCH (09:10)
[2016-11-19] MEDS: DAYQUIL PO PRN (10:18)
[2016-11-19 11:40] VITALS: BP 120/72
--- NOTE | 2016-11-19 13:43 | PCM.DCSUM1 ---
Discharge Summary - Hospital Course Brief History: His Ho is an 81-year-old woman who was admitted through the emergency department with shortness of breath and cough secondary to right middle lobe pneumonia. - Discharge Data Discharge Date: 11/19/16 Discharge Disposition: Home, W Home Health Agency 06 Condition: Stable - Discharge Diagnosis/Problem(s) (1) Atrial fibrillation SNOMED Code(s): 47985251 ICD Code: I48.91 - UNSPECIFIED ATRIAL FIBRILLATION Status: Acute Priority : High Current Visit: Yes Qualifiers: Atrial fibrillation type: chronic Qualified Code(s): I48.2 - Chronic atrial fibrillation (2) History of Coumadin therapy SNOMED Code(s): 516550648 ICD Code: Z79.01 - RESIDENTIAL (CURRENT) USE OF ANTICOAGULANTS Status: Acute Priority: High Current Visit: Yes (3) Pneumonia involving right lung SNOMED Code(s): 389477615 ICD Code: J18.9 - PNEUMONIA, UNSPECIFIED ORGANISM Status: Acute Priority : High Current Visit: Yes Qualifiers: Pneumonia type: due to unspecified organism Lung location: unspecified part of lung Qualified Code(s): J18.9 - Pneumonia, unspecified organism - Patient Summary/Data Consults: Consultations 11/14/16 20:51 OT Evaluation and Treatment [CONS] Routine Please Evaluate and Treat. OT Reason for Consult: Discharge Planning This query below is only for informational purposes and is not editable. PT Evaluation and Treatment [CONS] Routine Please Evaluate and Treat. PT Reason for Consult: Strengthening This query below is only for informational purposes and is not editable. Hospital Course: Ms. Ho is an 81-year-old woman who developed symptoms of cough, shortness of breath, and weakness. She presented to the emergency department for further evaluation, white blood cell count was modestly elevated and chest x-ray showed evidence of a right middle lobe infiltrate consistent with pneumonia. Blood cultures were obtained at the time of admission she was given IV fluids for hydration. There was no evidence of active sepsis at the time of admission. Antibiotic therapy was initiated with IV ceftriaxone and levofloxacin. Over the next several days of hospitalization she gradually improved although continued to have hypoxia on room air prior to discharge. For this reason she will be discharged home with home oxygen 1-2 L/m via nasal cannula. She will remain on oral antibiotic therapy for an additional 4 days, and will be continued on probiotic that she usually takes at home. INR did increase above therapeutic range during hospitalization but by the time of discharge was back within therapeutic range. While on the levofloxacin her dose of warfarin will be decreased to 1.25 mg daily, follow-up INR will be obtained in 2 days time. Home care will be arranged including home physical therapy. Follow-up appointment should be scheduled with her primary care provider within one week. - Patient Instructions Diet: Usual Diet as Tolerated Activity: As Tolerated Other/Special Instructions: Please arrange for home oxygen at the time of discharge. Home care with home physical therapy after discharge. Obtain blood for INR on Saturday, November 21. Please schedule follow-up appointment with primary care provider within one week. - Discharge Plan Prescriptions/Med Rec: Levofloxacin [Levaquin] 750 mg PO Q48H #2 tablet Home Medications: Home Meds Albuterol [Ventolin HFA] 2 puff IH Q4H PRN 09/09/16 [History] Allopurinol [Zyloprim] 100 mg PO DAILY 09/09/16 [History] Aspirin [Ecotrin] 81 mg PO DAILY 09/09/16 [History] Diltiazem HCl [Diltiazem 24Hr Cd] 180 mg PO DAILY 09/09/16 [History] Estrogens, Conjugated [Premarin Vaginal Crm] 0.5 gm VAG DAILY 09/09/16 [History] Furosemide [Lasix] 40 mg PO BID 09/09/16 [History] L.acidoph,Paracasei, B.lactis [Probiotic] 1 cap PO DAILY 09/09/16 [History] Meclizine [Antivert] 25 mg PO TID PRN 09/09/16 [History] Metoprolol Succinate [Toprol Xl] 12.5 mg PO BID 09/09/16 [History] Pravastatin [Pravachol] 10 mg PO BEDTIME 09/09/16 [History] Spironolactone [Aldactone] 25 mg PO BID 09/09/16 [History] Acetaminophen [Tylenol] 650 mg PO BEDTIME 11/14/16 [History] Calcium Carbonate [Calcium] 500 mg PO BEDTIME 11/14/16 [History] Cholecalciferol (Vitamin D3) [Vitamin D3] 1,000 units PO DAILY 11/14/16 [History ] Diazepam [Valium] 10 mg PO BEDTIME 11/14/16 [History] Ferrous Sulfate 325 mg PO WITHBREAKFAST 11/14/16 [History] Glucosimene-Chondroitin 1 cap PO BID 11/14/16 [History] Levofloxacin [Levaquin] 750 mg PO Q48H #2 tablet 11/19/16 [Rx] Warfarin [Coumadin] 1.25 tab PO DAILY #0 11/19/16 [Rx] Forms: ED Department Discharge Referrals: Jaime Jimenez MD [Primary Care Provider] - - Patient Data Vitals - Most Recent: Last Vital Signs Temp 97.1 F 11/19/16 11:39 Pulse 95 11/19/16 11:39 Resp 16 11/19/16 11:39 BP 120/72 11/19/16 11:39 Pulse Ox 92 L 11/19/16 11:39 Weight - Most Recent: 190 lb 0.016 oz I&O - Last 24 hours: Intake & Output 11/18/16 11/19/16 11/19/16 22:59 06:59 14:59 Intake Total 630 1180 Output Total 500 675 Balance 130 505 Lab Results - Last 24 hrs: Laboratory Results - last 24 hr 11/19/16 11/19/16 11/19/16 Range/Units 05:00 05:00 05:00 WBC 12.7 H (4.5-11.0) K/uL RBC 3.09 L (3.30-5.50) M/uL Hgb 9.9 L (12.0-15.0) g/dL Hct 31.0 L (36.0-48.0) % MCV 100 H (80-98) fL MCH 32 H (27-31) pg MCHC 32 (32-36) % Plt Count 205 (150-400) K/uL PT 27.2 H (9.5-12.0) sec INR 2.45 H (0.80-1.20) Sodium 137 L (140-148) mmol/L Potassium 4.7 (3.6-5.2) mmol/L Chloride 102 (100-108) mmol/L Carbon Dioxide 27 (21-32) mmol/L Anion Gap 12.7 (5.0-14.0) mmol/L BUN 41 H (7-18) mg/dL Creatinine 1.7 H (0.6-1.0) mg/dL Est Cr Clr Drug Dosing 24.75 mL/min Estimated GFR (MDRD) 29 L (>60) Glucose 96 (74-106) mg/dL Calcium 8.4 L (8.5-10.1) mg/dL Med Orders - Current: Current Medications Acetaminophen (Tylenol) 650 mg PO Q4H PRN PRN Reason: Pain (Mild 1-3)/fever Last Admin: 11/18/16 22:25 Dose: 650 mg Albuterol (Proventil Neb Soln) 2.5 mg NEB Q4H PRN PRN Reason: Shortness Of Breath/wheezing Albuterol/Ipratropium (Duoneb 3.0-0.5 Mg/3 Ml) 3 ml NEB QIDRT [facility] Last Admin: 11/19/16 10:58 Dose: 3 ml Allopurinol (Zyloprim) 100 mg PO DAILY [facility] Last Admin: 11/19/16 09:08 Dose: 100 mg Benzonatate (Tessalon Perles) 100 mg PO TID PRN PRN Reason: Cough Last Admin: 11/18/16 03:24 Dose: 100 mg Diazepam (Valium.) 10 mg PO BEDTIME [facility] Last Admin: 11/18/16 22:25 Dose: 10 mg Diltiazem HCl (Cardizem Cd) 180 mg PO DAILY [facility] Last Admin: 11/19/16 09:09 Dose: 180 mg Docusate Sodium (Colace) 100 mg PO BID PRN PRN Reason: Constipation Furosemide (Lasix) 40 mg PO BIDDIURETIC [facility] Last Admin: 11/19/16 13:22 Dose: 40 mg Guaifenesin/Codeine Phosphate (Robitussin Ac) 10 ml PO Q4H PRN PRN Reason: Cough Last Admin: 11/15/16 05:14 Dose: 10 ml Guaifenesin/Dextromethorphan (Robitussin Dm) 10 ml PO Q4H PRN PRN Reason: Cough Last Admin: 11/18/16 11:24 Dose: 10 ml Levofloxacin/Dextrose 750 mg/ (Premix) 150 mls @ 100 mls/hr IV Q48H [facility] Last Admin: 11/18/16 20:06 Dose: 100 mls/hr Lactobacillus Rhamnosus (Culturelle) 1 cap PO BID [facility] Last Admin: 11/19/16 09:09 Dose: 1 cap Lorazepam (Ativan) 1 mg IV Q6H PRN PRN Reason: Nausea/Vomiting Metoprolol Succinate (Toprol Xl) 12.5 mg PO BID [facility] Last Admin: 11/19/16 09:08 Dose: 12.5 mg Morphine Sulfate (Morphine) 2 mg IVPUSH Q2H PRN PRN Reason: Pain (severe 7-10) Nyquil Gel Caps (Own Med) 2 each PO Q4H PRN PRN Reason: COUGH / SLEEP Last Admin: 11/19/16 01:29 Dose: 2 each Ondansetron HCl (Zofran Odt) 4 mg PO Q6H PRN PRN Reason: Nausea able to take PO Ondansetron HCl (Zofran) 4 mg IV Q4H PRN PRN Reason: Nausea/Vomiting Pantoprazole Sodium (Protonix) 40 mg PO ACBREAKFAST [facility] Last Admin: 11/19/16 07:52 Dose: 40 mg Dayquil (Apap/Dextromethorphan/Phenyl)Ptom 2 each PO QID PRN PRN Reason: COUGH Last Admin: 11/19/16 10:18 Dose: 2 each Pravastatin Sodium (Pravachol) 10 mg PO BEDTIME [facility] Last Admin: 11/18/16 20:06 Dose: 10 mg Senna/Docusate Sodium (Senna Plus) 1 tab PO BID PRN PRN Reason: Constipation Last Admin: 11/18/16 20:07 Dose: 1 tab Spironolactone (Aldactone) 25 mg PO BID [facility] Last Admin: 11/19/16 09:10 Dose: 25 mg Temazepam (Restoril) 15 mg PO BEDTIME PRN PRN Reason: Sleep Last Admin: 11/15/16 01:08 Dose: 15 mg Discontinued Medications Albuterol (Proventil Neb Soln) 2.5 mg NEB ONETIME ONE Stop: 11/14/16 17:23 Last Admin: 11/14/16 17:30 Dose: 2.5 mg Albuterol/Ipratropium (Duoneb 3.0-0.5 Mg/3 Ml) 3 ml NEB QID [facility] Last Admin: 11/15/16 05:14 Dose: 3 ml Furosemide (Lasix) 60 mg IVPUSH ONETIME ONE Stop: 11/14/16 17:50 Last Admin: 11/14/16 18:20 Dose: 60 mg Furosemide (Lasix) Confirm Administered Dose 40 mg .ROUTE .STK-MED ONE Stop: 11/14/16 18:23 Last Admin: 11/14/16 20:29 Dose: Not Given Furosemide (Lasix) 40 mg PO BID [facility] Last Admin: 11/15/16 05:27 Dose: Not Given Furosemide (Lasix) 40 mg PO BID [facility] Sodium Chloride (Normal Saline) 1,000 mls @ 100 mls/hr IV ASDIRECTED [facility] Last Admin: 11/16/16 02:10 Dose: 100 mls/hr Ceftriaxone Sodium 1 gm/ (Sodium Chloride) 50 mls @ 100 mls/hr IV ONETIME ONE Stop: 11/14/16 18:50 Last Admin: 11/14/16 18:46 Dose: 100 mls/hr Ceftriaxone Sodium 1 gm/ (Sodium Chloride) 50 mls @ 100 mls/hr IV Q24H [facility] Last Admin: 11/15/16 18:20 Dose: 100 mls/hr Nyquil Gel Caps (Own Med) 2 each PO Q4H PRN PRN Reason: COUGH / SLEEP Last Admin: 11/17/16 23:33 Dose: 2 each Nyquil Gel Caps (Own Med) 2 each PO QID PRN PRN Reason: COUGH/SLEEP Dayquil (Apap/Dextromethorphan/Phenyl)Ptom 2 each PO DAILY PRN PRN Reason: COUGH Last Admin: 11/18/16 06:06 Dose: 2 each Patient Own Medication (Ptom) 2 each PO QID PRN PRN Reason: COUGH Warfarin Sodium (Coumadin) 1.5 mg PO SuMoTuThFr@1300 [facility] Last Admin: 11/16/16 12:16 Dose: 1.5 mg Warfarin Sodium (Coumadin) 2.5 mg PO WeSa@1300 [facility] *Q Meaningful Use (DIS) - VTE *Q VTE Criteria *Q: - Stroke *Q Stroke Criteria *Q: - AMI *Q AMI Criteria *Q:
== END 2016-11-19 17:11 | disposition home health service (06) | DRG 194 ==
LOC: JP.ED 16:35 → JP.MS 20:00 → UNDOADMIN 20:00 → JP.MS 20:51 → UNDODISIN 11-19 17:11
PROVIDERS: ADMIT Internal Medicine; ATTEND Internal Medicine
DX: J18.9 Pneumonia, unspecified organism (principal); E87.79 Other fluid overload; J18.1 Lobar pneumonia, unspecified organism; L97.211 Non-pressure chronic ulcer of right calf limited to breakdown of skin; I13.0 Hypertensive heart and chronic kidney disease with heart failure and stage 1 through stage 4 chronic kidney disease, or unspecified chronic kidney disease; I50.32 Chronic diastolic (congestive) heart failure; I48.2 Chronic atrial fibrillation; R09.02 Hypoxemia; E87.70 Fluid overload, unspecified; N18.3 Chronic kidney disease, stage 3 (moderate); Z79.82 Long term (current) use of aspirin; Z99.81 Dependence on supplemental oxygen; Z79.01 Long term (current) use of anticoagulants; Z79.899 Other long term (current) drug therapy; Z95.0 Presence of cardiac pacemaker
CPT/HCPCS: 36415; 71020 ×2; 80053; 81001; 82607; 82746; 82803; 83605; 83880; 84484; 85025; 85610; 86140; 87040 ×2; 93005; 96365; 96375; 99285; J0696; J1940; J7040; J7050; 80048; 85027; 93010; 94640-76; 94667; 94762; 97110-GP; 97116-GP; 97162-GP; 97165-GO; 97530-GP; A9270-GY; J1956; J7620

== ENCOUNTER 2020-03-04 02:27 | Emergency (ER) | payer MEDICARE, OTHER ==
--- NOTE | 2020-03-04 02:33 | EDM.PDOC ---
ED HPI GENERAL MEDICAL PROBLEM - General Chief Complaint: General Stated Complaint: MEDICAL [facility] Time Seen by Provider: 03/04/20 02:31 Source of Information: Reports: Patient History Limitations: Reports: No Limitations - History of Present Illness INITIAL COMMENTS - FREE TEXT/NARRATIVE: pt arrived by ambulance because of marked nasal bleeding. She is on coumadin therapy. Onset: Today, Sudden Duration: Hour(s): Location: Reports: Face Associated Symptoms: Reports: Other ( nasal bleeding. ) - Related Data Allergies Allergy/AdvReac Type Severity Reaction Status Date / Time amoxicillin Allergy Cannot Verified 03/04/20 02:32 Remember bacitracin Allergy Cannot Verified 03/04/20 02:32 Remember enoxaparin Allergy Cannot Verified 03/04/20 02:32 Remember latex Allergy Cannot Verified 03/04/20 02:32 Remember ramipril Allergy Cannot Verified 03/04/20 02:32 Remember Home Meds: Home Meds Albuterol [Ventolin HFA] 2 puff IH Q4H PRN 09/09/16 [History] Allopurinol [Zyloprim] 100 mg PO DAILY 09/09/16 [History] Aspirin [Ecotrin EC] 81 mg PO DAILY 09/09/16 [History] Estrogens, Conjugated [Premarin Vaginal Crm] 0.5 gm VAG DAILY 09/09/16 [History] Furosemide [Lasix] 40 mg PO BID 09/09/16 [History] L.acidoph,Paracasei, B.lactis [Probiotic] 1 cap PO DAILY 09/09/16 [History] Meclizine [Antivert] 25 mg PO TID PRN 09/09/16 [History] Metoprolol Succinate [Toprol Xl] 12.5 mg PO BID 09/09/16 [History] Pravastatin [Pravachol] 10 mg PO BEDTIME 09/09/16 [History] Spironolactone [Aldactone] 25 mg PO BID 09/09/16 [History] dilTIAZem HCL [Diltiazem 24Hr ER (Cd)] 180 mg PO DAILY 09/09/16 [History] Acetaminophen [Tylenol] 650 mg PO BEDTIME 11/14/16 [History] Calcium Carbonate [Calcium] 500 mg PO BEDTIME 11/14/16 [History] Cholecalciferol (Vitamin D3) [Vitamin D3] 1,000 units PO DAILY 11/14/16 [History] Ferrous Sulfate 325 mg PO WITHBREAKFAST 11/14/16 [History] Glucosimene-Chondroitin 1 cap PO BID 11/14/16 [History] diazePAM [Valium] 10 mg PO BEDTIME 11/14/16 [History] Levofloxacin [Levaquin] 750 mg PO Q48H #2 tablet 11/19/16 [Rx] Warfarin [Coumadin] 1.25 tab PO DAILY #0 11/19/16 [Rx] Past Medical History HEENT History: Reports: Cataract, Impaired Vision Cardiovascular History: Reports: Arrhythmia, High Cholesterol, Hypertension, Pacemaker Respiratory History: Reports: Sleep Apnea Genitourinary History: Reports: Other (See Below) Other Genitourinary History: 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 [employer] History: Reports: Musculoskeletal History: Reports: Arthritis, Osteoarthritis Hematologic History: Reports: Anemia, Anticoagulation Therapy Oncologic (Cancer) History: Reports: Breast, Uterine Other Oncologic History: skin cancer Dermatologic History: Reports: Other (See Below) Other Dermatologic History: skin cancer - Past Surgical History HEENT Surgical History: Reports: Cataract Surgery Cardiovascular Surgical History: Reports: Valve Replacement Female Surgical History: Reports: Breast Reconstruction, Hysterectomy Musculoskeletal Surgical History: Reports: Knee Replacement Other Musculoskeletal Surgeries/Procedures:: 2010 Oncologic Surgical History: Reports: Mastectomy Other Oncologic Surgeries/Procedures: left mastectomy Social & Family History - Family History Family Medical History: No Pertinent Family History - Caffeine Use Caffeine Use: Reports: None - Living Situation & Occupation Living situation: Reports: Occupation: Retired (lives with [place] on [facility] [place]. 3 sons, one lives in [facility], one [facility], one last Nov 2015 from complications of alcoholism.) ED ROS GENERAL - Review of Systems Review Of Systems: See Below Constitutional: Reports: No Symptoms HEENT: Reports: Nosebleed Respiratory: Reports: No Symptoms Cardiovascular: Reports: No Symptoms, Other ( history of atrial fib. ) Endocrine: Reports: No Symptoms GI/Abdominal: Reports: No Symptoms : Reports: No Symptoms Musculoskeletal: Reports: No Symptoms Skin: Reports: No Symptoms Neurological: Reports: No Symptoms Psychiatric: Reports: Agitation ED EXAM, GENERAL - Physical Exam Exam: See Below Free Text/Narrative:: pt arrived with history of a heavy nose bleed from the rt nare. She is on coumadin therapy. Exam Limited By: No Limitations General Appearance: Alert, Anxious, Mild Distress Ears: Normal TMs Nose: Other (pt had a clamp on the nose on arrival. This was removed and there appeared to be no further bleeding. ) Throat/Mouth: Normal Inspection Head: Atraumatic Neck: Normal Inspection Respiratory/Chest: No Respiratory Distress Cardiovascular: Regular Rate, Rhythm Course - Vital Signs Last Recorded V/S: Last Vital Signs Temp 36.7 C 03/04/20 02:41 Pulse 93 03/04/20 02:41 Resp 20 03/04/20 02:41 BP 143/74 H 03/04/20 02:41 Pulse Ox 93 L 03/04/20 02:41 - Orders/Labs/Meds Labs: Laboratory Tests 03/04/20 03/04/20 Range/Units 02:39 02:39 WBC 12.0 H (4.5-11.0) K/uL RBC 4.15 (3.30-5.50) M/uL Hgb 13.6 D (12.0-15.0) g/dL Hct 42.5 (36.0-48.0) % MCV 102 H (80-98) fL MCH 33 H (27-31) pg MCHC 32 (32-36) % Plt Count 132 L (150-400) K/uL Neut % (Auto) 77 H (36-66) % Lymph % (Auto) 12 L (24-44) % [place] % (Auto) 10 H (2-6) % Eos % (Auto) 1 L (2-4) % Baso % (Auto) 0 (0-1) % PT 18.4 H (9.5-12.0) sec INR 1.71 H (0.80-1.20) Meds: Medications Discontinued Medications Generic Name Dose Route Start Last Admin Trade Name Freq PRN Reason Stop Dose Admin Oxymetazoline HCl 1 ml 03/04/20 03:17 Nasal Decongestant [place] 03/04/20 03:18 ONETIME ONE Oxymetazoline HCl 1 ml 03/04/20 03:19 Nasal Decongestant [place] 03/04/20 03:20 ONETIME ONE - Re-Assessments/Exams Free Text/Narrative Re-Assessment/Exam: 03/04/20 03:26 pt arrived with a clamp on her nose this was removed and she was obswerved and there was no further bleeding. she was sprayed with afrin to shrink the vessels. She will be watched further. Her INR was check and was 1.71. Her hg was good. Departure - Departure Time of Disposition: 03:20 Disposition: Home, Self-Care 01 Condition: Fair Clinical Impression: Nosebleed, History of Coumadin therapy - Discharge Information Referrals: PCP,None [Primary Care Provider] - Forms: ED Department Discharge Care Plan Goals: low activity, spray the rt nare with afrin spray tid for the next 3 days, cool mist humidfier. do not take coumadin tomorrow then resume as usual. Sepsis Event Note (ED) - Focused Exam Vital Signs: Vital Signs Temp Pulse Resp BP Pulse Ox 03/04/20 02:41 36.7 C 93 20 143/74 H 93 L 03/04/20 02:40 36.7 C 93 20 143/74 H 93 L
[2020-03-04 02:41] VITALS: BP 143/74; PULSE 93
[2020-03-04] MEDS ORDERED: Oxymetazoline 0.05% Nasal Spray 30 ML Bottle NAS ONE ×2 (03:17→03:19)
== END 2020-03-04 04:52 | disposition home or self-care (01) ==
LOC: JP.ED 02:27
DX: R04.0 Epistaxis (principal); E78.00 Pure hypercholesterolemia, unspecified; I12.9 Hypertensive chronic kidney disease with stage 1 through stage 4 chronic kidney disease, or unspecified chronic kidney disease; N18.30 Chronic kidney disease, stage 3 unspecified; M19.90 Unspecified osteoarthritis, unspecified site; D64.9 Anemia, unspecified; Z95.0 Presence of cardiac pacemaker; Z79.01 Long term (current) use of anticoagulants; Z88.1 Allergy status to other antibiotic agents; Z88.8 Allergy status to other drugs, medicaments and biological substances; Z91.040 Latex allergy status; Z79.82 Long term (current) use of aspirin; Z79.899 Other long term (current) drug therapy
CPT/HCPCS: 36415; 85025; 85610; 99282; 99283; A9270-GY